=== PATIENT | male | born 1945 | race Caucasian/White ===

== ENCOUNTER 2016-06-21 17:50 | Inpatient (IN) ==
[2016-06-21] MEDS ORDERED: methylPREDNISolone 125 MG/2 ML VIAL IV ONE (18:05)
[2016-06-21] MEDS ORDERED: Ipratropium/Albuterol Neb 3 ML IH ONE (18:05)
--- NOTE | 2016-06-21 18:09 | Emergency Department Note ---
Disposition Clinical Impression: Acute exacerbation of chronic obstructive airways disease Disposition: Admitted As Inpatient Referrals: Daniel Tirado DO [Primary Care Provider] - Forms: ED Satisfaction Letter SOB HPI - General Chief Complaint: ED Shortness of Breath/Dyspnea Stated Complaint: BEREKET, cough congestion Time Seen by Provider: 06/21/16 17:57 Source: patient, family Limitations: no limitations Nursing Notes Reviewed: Yes Vital Signs Reviewed: Yes - History of Present Illness Patient presents for complaint of shortness of breath and been going on for at least a month. Patient denies any recent travel. Patient's had a cough which is: Pain in his chest. Patient denies fevers or chills denies vision changes. Patient states that he follow up his primary care physician with no improvement his symptoms. Patient denies numbness and tingling. Patient denies any new medications or any changes in medication regimen. Patient denies history of DVT or pulmonary embolus. - Related Data Previous Rx's Medication Instructions Recorded Ondansetron ODT [Zofran ODT] 4 mg SL Q8HR #10 tab.rapdis 02/29/16 Oxycodone HCl/Acetaminophen 1 each PO Q4HR #10 tablet 02/29/16 [Percocet 5-325 mg Tablet] Tamsulosin [Flomax] 0.4 mg PO DAILY #10 capsule 02/29/16 Benzonatate [Tessalon] 100 mg PO TID PRN #20 capsule 05/30/16 PredniSONE [Prednisone] 50 mg PO DAILY #5 tablet 05/30/16 Allergies Allergy/AdvReac Type Severity Reaction Status Date / Time pain patches AdvReac See Uncoded 02/04/16 08:28 Comments All systems ED: reviewed and negative except as stated. Past Medical History - Past Medical History Source: patient Medical history: Reports: COPD, GERD, hypertension, kidney stones, peripheral artery disease Psychiatric history: Reports: no psych history - Social History Smoking Status: Unknown if ever smoked Smokeless Tobacco Status: No Alcohol use: Reports: unknown Drug use: Reports: none Physical Exam - General Limitations: no limitations General appearance: alert - Head Head exam: atraumatic, normocephalic, normal inspection - Eye Eye exam: Present: normal appearance, PERRL, EOMI - ENT ENT exam: normal exam, normal oropharynx, mucous membranes moist - Neck Neck exam: Present: normal inspection, full ROM, trachea midline - Chest Chest inspection: Present: normal inspection, symmetric chest wall rise - Respiratory Respiratory exam: Present: other (Decreased air movement, tachypnea, accessory muscle use) - Cardiovascular Cardiovascular exam: Present: regular rate, normal rhythm, normal heart sounds - Abdominal Exam Abdominal exam: Present: soft, Non-Tender. Absent: tenderness, distention, guarding, rebound, rigidity - Extremities Exam Extremities exam: Present: normal inspection, full ROM. Absent: tenderness, pedal edema - Back Exam Back exam: Present: normal inspection, full ROM. Absent: tenderness - Neurological Exam Neurological exam: Present: alert, oriented X3 - Psychiatric Psychiatric exam: Present: normal affect, normal mood - Skin Skin exam: Present: warm, dry, intact, normal color Course Vital Signs Temperature 98.1 F 06/21/16 17:52 Pulse Rate 96 06/21/16 17:52 Respiratory Rate 24 06/21/16 17:52 Blood Pressure 184/77 06/21/16 17:52 O2 Sat by Pulse Oximetry 95 06/21/16 17:52 Temperature 98.1 F 06/21/16 17:52 Pulse Rate 87 06/21/16 20:05 Respiratory Rate 24 06/21/16 20:05 Blood Pressure 169/98 06/21/16 20:05 O2 Sat by Pulse Oximetry 93 L 06/21/16 20:05 Oxygen Delivery Oxygen Delivery Room Air Shortness of Breath/Dyspnea - Differential Diagnosis Likely: acute exacerbation of chronic obstructive airways disease, congestive heart failure, pneumonia, pulmonary embolism - Lab Data Lab results reviewed: Yes I reviewed the patient's lab results. Result diagrams: 06/21/16 18:14 06/21/16 18:14 Lab Results 06/21/16 06/21/16 06/21/16 Range/Units 18:14 18:14 18:14 WBC 6.3 (4.3-11.1) K/mcL RBC 4.83 (4.19-5.50) M/mcL Hgb 14.0 (12.9-16.9) g/dL Hct 41.9 (37.5-50.1) % MCV 86.7 (83.0-100.0) fL MCH 29.0 (28.0-33.3) pg MCHC 33.4 (31.6-35.5) g/dL RDW 13.2 (11.5-14.5) % Plt Count 180 (140-400) K/mcL MPV 10.6 (9.4-12.4) fL Immature Gran % 0.3 (0-4) % Seg Neutrophils % 54.6 % Lymphocytes % 25.8 % Monocytes % 13.8 % Eosinophils % 4.9 % Basophils % 0.6 % Neutrophils # 3.4 (1.6-8.9) K/mcL Lymphocytes # 1.6 (0.6-4.6) K/mcL Monocytes # 0.9 (0.0-1.3) K/mcL Eosinophils # 0.3 (0.0-0.6) K/mcL Basophils # 0.0 (0.0-0.2) K/mcL Immature Plt Fraction 5.7 (1.1-6.1) % PT 12.4 H (9.4-12.1) Seconds INR 1.1 APTT 31.1 (26.0-36.0) Seconds Sodium 141 (136-145) mEq/L Potassium 3.8 (3.5-4.5) mEq/L Chloride 105 (98-109) mEq/L Carbon Dioxide 26 (19-29) mEq/L BUN 19 (8-26) mg/dL Creatinine 1.13 (0.72-1.25) mg/dL Est GFR ( Amer) > 60 (> 60) Est GFR (Non-Af Amer) > 60 (> 60) BUN/Creatinine Ratio 17 (6-26) Glucose 111 H (70-99) mg/dL Calculated Osmolality 295 (280-300) Lactic Acid (0.5-2.2) mmol/L Calcium 8.9 (8.6-10.8) mg/dL Total Bilirubin 0.7 (0.2-1.2) mg/dL AST 32 (5-34) Units/L ALT 49 (0-55) Units/L Alkaline Phosphatase 98 (38-126) Units/L Troponin I (0-0.03) ng/mL B-Natriuretic Peptide (0-100) pg/mL Serum Total Protein 7.2 (6.0-8.3) g/dL Albumin 3.6 (3.5-5.0) g/dL Globulin 3.6 H (2.4-3.5) g/dL Albumin/Globulin Ratio 1.0 L (1.1-2.2) 06/21/16 06/21/16 06/21/16 Range/Units 18:14 18:14 18:14 WBC (4.3-11.1) K/mcL RBC (4.19-5.50) M/mcL Hgb (12.9-16.9) g/dL Hct (37.5-50.1) % MCV (83.0-100.0) fL MCH (28.0-33.3) pg MCHC (31.6-35.5) g/dL RDW (11.5-14.5) % Plt Count (140-400) K/mcL MPV (9.4-12.4) fL Immature Gran % (0-4) % Seg Neutrophils % % Lymphocytes % % Monocytes % % Eosinophils % % Basophils % % Neutrophils # (1.6-8.9) K/mcL Lymphocytes # (0.6-4.6) K/mcL Monocytes # (0.0-1.3) K/mcL Eosinophils # (0.0-0.6) K/mcL Basophils # (0.0-0.2) K/mcL Immature Plt Fraction (1.1-6.1) % PT (9.4-12.1) Seconds INR APTT (26.0-36.0) Seconds Sodium (136-145) mEq/L Potassium (3.5-4.5) mEq/L Chloride (98-109) mEq/L Carbon Dioxide (19-29) mEq/L BUN (8-26) mg/dL Creatinine (0.72-1.25) mg/dL Est GFR ( Amer) (> 60) Est GFR (Non-Af Amer) (> 60) BUN/Creatinine Ratio (6-26) Glucose (70-99) mg/dL Calculated Osmolality (280-300) Lactic Acid 2.2 (0.5-2.2) mmol/L Calcium (8.6-10.8) mg/dL Total Bilirubin (0.2-1.2) mg/dL AST (5-34) Units/L ALT (0-55) Units/L Alkaline Phosphatase (38-126) Units/L Troponin I 0.00 (0-0.03) ng/mL B-Natriuretic Peptide 13 (0-100) pg/mL Serum Total Protein (6.0-8.3) g/dL Albumin (3.5-5.0) g/dL Globulin (2.4-3.5) g/dL Albumin/Globulin Ratio (1.1-2.2) - Radiology Data Radiology results reviewed: Yes I reviewed the patient's radiology results. Chest CTA 06/21/16 18:02 IMPRESSION: 1. No evidence of pulmonary embolism. 2. A few small irregular nodular opacities in the anterior segment of the right upper lobe that may represent an infectious process. See recommendations below. 3. New right hilar lymphadenopathy is nonspecific but may be reactive. 4. COPD. Fleischner Society guidelines for follow-up and management of pulmonary nodules: Nodule size greater than 8 mm In low-risk and high-risk patients follow-up CT at around 3, 9, and 24 months, dynamic contrast-enhanced CT, PET, and/or biopsy. Low risk patients include individuals with minimal or absent history of smoking and other known risk factors. High risk patients include individuals with a history of smoking or other known risk factors. Radiology 2005; [id number] D/ / Matt Simons MD / Matt Simons MD Interpreting Provider: Matt Simons MD - EKG Data EKG attestation: Yes I reviewed and interpreted this EKG. EKG results narrative: EKG is unchanged from previous EKG shows normal: Reports: sinus rhythm Rate: Reports: normal Rhythm: Reports: NSR
[2016-06-21 18:21] LABS: Basophils % 0.6 %; Eosinophils # 0.3 K/mcL (0.0-0.6); Eosinophils % 4.9 %; Hematocrit 41.9 % (37.5-50.1); Immature Granulocytes % 0.3 % (0-4); Immature Platelets 5.7 % (1.1-6.1); Lymphocytes # 1.6 K/mcL (0.6-4.6); Lymphocytes % 25.8 %; Mean Corpuscular HGB Conc 33.4 g/dL (31.6-35.5); Mean Corpuscular Volume 86.7 fL (83.0-100.0); Mean Platelet Volume 10.6 fL (9.4-12.4); Monocytes # 0.9 K/mcL (0.0-1.3); Monocytes % 13.8 %; Neutrophils # 3.4 K/mcL (1.6-8.9); Platelet Count 180 K/mcL (140-400); Red Blood Count 4.83 M/mcL (4.19-5.50); Red Cell Distribution Width 13.2 % (11.5-14.5); Segmented Neutrophils % 54.6 %
[2016-06-21] MEDS ORDERED: GuaiFENesin/Codeine Oral Soln 5 ML UDC PO ONE (18:25)
[2016-06-21 18:26] LABS: INR 1.1; Prothrombin Time 12.4 Seconds (9.4-12.1)
[2016-06-21 18:29] LABS: Activated Partial Thrombo Time 31.1 Seconds (26.0-36.0)
[2016-06-21 18:35] LABS: Alanine Aminotransferase 49 Units/L (0-55); Albumin 3.6 g/dL (3.5-5.0); Alkaline Phosphatase 98 Units/L (38-126); Aspartate Amino Transferase 32 Units/L (5-34); BUN/Creatinine Ratio 17 (6-26); Bilirubin,Total 0.7 mg/dL (0.2-1.2); Blood Urea Nitrogen 19 mg/dL (8-26); Calcium 8.9 mg/dL (8.6-10.8); Carbon Dioxide 26 mEq/L (19-29); Chloride 105 mEq/L (98-109); Globulin 3.6 g/dL (2.4-3.5); Glucose 111 mg/dL (70-99); Osmolality,Calculated 295 (280-300); Potassium 3.8 mEq/L (3.5-4.5); Sodium 141 mEq/L (136-145); Total Protein 7.2 g/dL (6.0-8.3); eGFR For African Americans > 60 (> 60); eGFR For Non-African Americans > 60 (> 60)
[2016-06-21] MEDS ORDERED: Lidocaine Viscous Oral Soln 15 ML SOLUTION MM ONE (20:04)
[2016-06-21] MEDS ORDERED: Albuterol 2.5 MG/3 ML NEBULIZER IH PRN (23:01)
[2016-06-21] MEDS ORDERED: *HR* Morphine 2 MG/ML SYRINGE IVP PRN (23:03)
[2016-06-21] MEDS ORDERED: Ondansetron 4 MG/2 ML VIAL IVP PRN (23:03)
[2016-06-21] MEDS ORDERED: Naloxone 0.4 MG/ML INJ IVP PRN (23:03)
[2016-06-21] MEDS ORDERED: Acetaminophen 325 MG TABLET PO PRN (23:03)
--- NOTE | 2016-06-21 23:28 | Internal Med History&Physical ---
Date of Encounter: 06/21/16 Time of Encounter: 22:35 Internal Medicine - H&P: HPI Chief complaint: Coughing, SOB X 1 MONTH Admitted From: Emergency Dept Plans for Post Hospital Care: Home History of present illness: Mr. Huerta is a 70 year old male with medical history significant for COPD/ emphysema presents with 1 month history of intermittent productive cough, sometime in paroxysm that take his breath away. Associated with SOB. He reports pain in his chest and sides due to coughing. Sometime he nearly lost consciousness during bouths of coughing. He denies fevers or chills or rigors. No sick contacts, no recent travel. He was evaluated by his PCP, as well as at Urgent Care and [facility] [place] [facility]. He was prescribed antibiotic, and inhalers with some relief. N other associated symptoms. He nominates his niece, Starr Saleh , [phone]), he is FUL CODE as per discussion but does not want to be maintained in a prolonged vegetative state. Medical history: Reports: COPD, GERD, hypertension, kidney stones, peripheral artery disease, DM2, sinusitis, seasonal allergies Surgical history: carpal tunnel repir Psychiatric history: Reports: no psych history Smoking Status: Unknown if ever smoked Smokeless Tobacco Status: No Alcohol use: Reports: unknown Drug use: Reports: none Family history: Mother: DM2, kidney disease, brother: lung disease ROS: A 10-point ROS was performed, positives and relevant negatives are detailed , system-symptoms not mentioned is assumed negative unless otherwise stated. Vital Signs Temperature 98.1 F 06/21/16 17:52 Pulse Rate 96 06/21/16 17:52 Respiratory Rate 24 06/21/16 17:52 Blood Pressure 184/77 06/21/16 17:52 O2 Sat by Pulse Oximetry 95 06/21/16 17:52 Temperature 98.1 F 06/21/16 17:52 Pulse Rate 87 06/21/16 20:05 Respiratory Rate 24 06/21/16 20:05 Blood Pressure 169/98 06/21/16 20:05 O2 Sat by Pulse Oximetry 93 L 06/21/16 20:05 O/E: in distress from coughing and labored breathing, , not ill looking, not lethargic HEENT: Not pale, anicteric, afebrile, acyanotic, no JVD Chest:Inspiratory strider (mild) expiratory wheezing more severe and scattered Heart/CVS: RRR, HS1/2, no murmur Abdomen: soft, non-tender, no masses [employer]: AAO x 3, no gross focal neurological deficits, moves all limbs spontaneously. Skin: no active skin lesion Extremities: no normal pedal pulses, no calf tenderness, 1+ pedal edema, L>R Lab Results 06/21/16 06/21/16 06/21/16 Range/Units 18:14 18:14 18:14 WBC 6.3 (4.3-11.1) K/mcL RBC 4.83 (4.19-5.50) M/mcL Hgb 14.0 (12.9-16.9) g/dL Hct 41.9 (37.5-50.1) % MCV 86.7 (83.0-100.0) fL MCH 29.0 (28.0-33.3) pg MCHC 33.4 (31.6-35.5) g/dL RDW 13.2 (11.5-14.5) % Plt Count 180 (140-400) K/mcL MPV 10.6 (9.4-12.4) fL Immature Gran % 0.3 (0-4) % Seg Neutrophils % 54.6 % Lymphocytes % 25.8 % Monocytes % 13.8 % Eosinophils % 4.9 % Basophils % 0.6 % Neutrophils # 3.4 (1.6-8.9) K/mcL Lymphocytes # 1.6 (0.6-4.6) K/mcL Monocytes # 0.9 (0.0-1.3) K/mcL Eosinophils # 0.3 (0.0-0.6) K/mcL Basophils # 0.0 (0.0-0.2) K/mcL Immature Plt Fraction 5.7 (1.1-6.1) % PT 12.4 H (9.4-12.1) Seconds INR 1.1 APTT 31.1 (26.0-36.0) Seconds Sodium 141 (136-145) mEq/L Potassium 3.8 (3.5-4.5) mEq/L Chloride 105 (98-109) mEq/L Carbon Dioxide 26 (19-29) mEq/L BUN 19 (8-26) mg/dL Creatinine 1.13 (0.72-1.25) mg/dL Est GFR ( Amer) > 60 (> 60) Est GFR (Non-Af Amer) > 60 (> 60) BUN/Creatinine Ratio 17 (6-26) Glucose 111 H (70-99) mg/dL Calculated Osmolality 295 (280-300) Lactic Acid (0.5-2.2) mmol/L Calcium 8.9 (8.6-10.8) mg/dL Total Bilirubin 0.7 (0.2-1.2) mg/dL AST 32 (5-34) Units/L ALT 49 (0-55) Units/L Alkaline Phosphatase 98 (38-126) Units/L Troponin I (0-0.03) ng/mL B-Natriuretic Peptide (0-100) pg/mL Serum Total Protein 7.2 (6.0-8.3) g/dL Albumin 3.6 (3.5-5.0) g/dL Globulin 3.6 H (2.4-3.5) g/dL Albumin/Globulin Ratio 1.0 L (1.1-2.2) 06/21/16 06/21/16 06/21/16 Range/Units 18:14 18:14 18:14 WBC (4.3-11.1) K/mcL RBC (4.19-5.50) M/mcL Hgb (12.9-16.9) g/dL Hct (37.5-50.1) % MCV (83.0-100.0) fL MCH (28.0-33.3) pg MCHC (31.6-35.5) g/dL RDW (11.5-14.5) % Plt Count (140-400) K/mcL MPV (9.4-12.4) fL Immature Gran % (0-4) % Seg Neutrophils % % Lymphocytes % % Monocytes % % Eosinophils % % Basophils % % Neutrophils # (1.6-8.9) K/mcL Lymphocytes # (0.6-4.6) K/mcL Monocytes # (0.0-1.3) K/mcL Eosinophils # (0.0-0.6) K/mcL Basophils # (0.0-0.2) K/mcL Immature Plt Fraction (1.1-6.1) % PT (9.4-12.1) Seconds INR APTT (26.0-36.0) Seconds Sodium (136-145) mEq/L Potassium (3.5-4.5) mEq/L Chloride (98-109) mEq/L Carbon Dioxide (19-29) mEq/L BUN (8-26) mg/dL Creatinine (0.72-1.25) mg/dL Est GFR ( Amer) (> 60) Est GFR (Non-Af Amer) (> 60) BUN/Creatinine Ratio (6-26) Glucose (70-99) mg/dL Calculated Osmolality (280-300) Lactic Acid 2.2 (0.5-2.2) mmol/L Calcium (8.6-10.8) mg/dL Total Bilirubin (0.2-1.2) mg/dL AST (5-34) Units/L ALT (0-55) Units/L Alkaline Phosphatase (38-126) Units/L Troponin I 0.00 (0-0.03) ng/mL B-Natriuretic Peptide 13 (0-100) pg/mL Serum Total Protein (6.0-8.3) g/dL Albumin (3.5-5.0) g/dL Globulin (2.4-3.5) g/dL Albumin/Globulin Ratio (1.1-2.2) Chest CTA 06/21/16 18:02 No evidence of pulmonary embolism. A few small irregular nodular opacities in the anterior segment of the right upper lobe that may represent an infectious process. New right hilar lymphadenopathy is nonspecific but may be reactive. COPD. EKG: NSR, unchanged from prior imp Tracheobronchitis, evaluate for Mycoplasma, absent terminal whoop and lacking an ideal contact, whooping cough is unlikely. CPD exacerbation Chronic morbidties copd/emphysema HTN PAD BPH GERD PLAN Admit Bronchodilator nebs, inhalers zITHROMAX FOR PROBABLE MYCOPLASMA Mycoplasma antibody IgG/M Solumedro 40mg Q8H Oxygen supplementation Continue other medications of chronic morbidities I discussed my findings and assessment with the patient, his niece is at bedside. They verbalized understanding and are agreeable to admission. H is admitted due to failed out-patient treatment, deteriorating symptoms. Past Med Surg Social Fam HX - Past Medical History Medical history: COPD, GERD, hypertension, kidney stones, peripheral artery disease Psychiatric history: no psych history - Social History Smoking Status: Never smoker Smokeless Tobacco Status: No Alcohol use: unknown Drug use: none - Family History Mother Living Status: Hx Family Endocrine Disorder: Yes (DM, kidney disease) Father Living Status: Internal Medicine - H&P: Meds Tamsulosin [Flomax] 0.4 mg PO DAILY #10 capsule 02/29/16 [Rx] PredniSONE [Prednisone] 50 mg PO DAILY #5 tablet 05/30/16 [Rx] Advair 500-50 Diskus 06/21/16 [History] Albuterol Sulfate [Proventil Hfa] 0.09 mg IH PRN PRN 06/21/16 [History] Atenolol [Tenormin] 50 mg PO DAILY 06/21/16 [History] Diazepam [Valium] 2.5 mg PO BID PRN 06/21/16 [History] Fluticasone/Salmeterol [Advair 500-50 Diskus] 1 each IH BID 06/21/16 [History] Omeprazole [PriLOSEC] 20 mg PO BIDAC 06/21/16 [History] Oxycodone HCl/Acetaminophen [Percocet 10-325 mg Tablet] 1 each PO Q6HR PRN 06/21 [History] Oxycodone HCl/Acetaminophen [Percocet 5-325 mg Tablet] 06/21/16 [History] Simvastatin [Zocor] 40 mg PO HS 06/21/16 [History] Tiotropium [Spiriva] 18 mcg IH DAILY 06/21/16 [History] Allergies pain patches Adverse Reaction (Uncoded 02/04/16 08:28) See Comments pt states was really sick -doesn't know the name of patches All Systems PM: A 10-system review of systems was performed and is negative for pertinent findings except as documented above in the HPI. - Constitutional Vitals: Temp Pulse Resp BP Pulse Ox 98.1 F 78 16 149/80 92 L 06/21/16 23:08 06/21/16 23:08 06/21/16 23:08 06/21/16 23:08 06/21/16 23:08 Internal Med - H&P Results - Labs CBC & Chem 7: 06/21/16 18:14 06/21/16 18:14
[2016-06-21] MEDS: Ipratropium/Albuterol Neb 3 ML IH SCH (23:35)
[2016-06-22] MEDS: GuaiFENesin/Codeine Oral Soln 5 ML UDC PO SCH ×4 (00:11→18:19)
[2016-06-22] MEDS: MethylPREDNISolone 40 MG/ML VIAL IVP SCH ×3 (00:11→15:15)
[2016-06-22] MEDS: Azithromycin 250 MG TABLET PO SCH ×2 (00:11→08:09)
[2016-06-22] MEDS: Ipratropium/Albuterol Neb 3 ML IH SCH ×4 (04:41→22:43)
[2016-06-22] MEDS: *HR* OxyCODONE/APAP 5/325 TABLET PO PRN ×2 (08:09→11:03)
[2016-06-22] MEDS: diazePAM 5 MG TABLET PO PRN ×2 (08:22→19:49)
--- NOTE | 2016-06-22 09:01 | Internal Med Progress Note ---
Date of Encounter: 06/22/16 Time of Encounter: 08:15 - Assessment and plan (1) Pneumonia Current Visit: Yes Status: Acute Assessment and plan: With his paroxysmal cough will check. Pertussis continue azithromycin continue aerosol treatment add Mucinex Qualifiers: Pneumonia type: due to unspecified organism Laterality: right Lung location: upper lobe of lung Qualified Code(s): J18.1 - Lobar pneumonia, unspecified organism (2) Sore throat Current Visit: Yes Status: Acute (3) Acute exacerbation of chronic obstructive airways disease Current Visit: Yes Status: Acute - Subjective Interval history: Patient continued to complain dry cough, sore throat, paroxysmal coughing episodes. When his phlegm occasionally it is yellowish phlegm Review of system otherwise negative - Constitutional Vitals: Temp Pulse Resp BP Pulse Ox 97.5 F L 103 24 155/77 90 L 06/22/16 07:00 06/22/16 07:00 06/22/16 07:00 06/22/16 07:00 06/22/16 07:00 - Head Head exam: Present: atraumatic, normocephalic - Expanded ENT Exam Throat exam: Present: normal inspection. Absent: post pharyngeal edema, tonsillar exudate - Neck Neck exam general surgery: Present: supple, trachea midline. Absent: lymphadenopathy - Respiratory Respiratory exam: Present: decreased breath sounds, rales (Right upper lobe). Absent: accessory muscle use, rhonchi, wheezes - Cardiovascular Cardiovascular exam: Present: RRR, +S1, +S2. Absent: diastolic murmur, gallop, rubs, systolic murmur - GI/Abdominal GI/Abdominal exam: Present: normal bowel sounds, soft, no peritoneal signs. Absent: distended, tenderness - Extremities Exam Extremities exam: Present: warm, radial pulses palpable and symetrical. Absent : calf tenderness, cyanotic, pedal edema - Skin Skin exam: Present: dry, intact Internal Medicine: Result - Labs CBC & Chem 7: 06/21/16 18:14 06/21/16 18:14 - ABG Interpretation ABG results: PT/INR, D-dimer PT 12.4 Seconds (9.4-12.1) H 06/21/16 18:14 Consult Discharge Plan - Plan Referrals: Daniel Tirado DO [Primary Care Provider] -
[2016-06-22] MEDS: Budesonide/Formoterol 160/4.5 MDI IH SCH ×2 (10:44→22:43)
[2016-06-22] MEDS ORDERED: CefTRIAXone 1,000 MG VIAL ONE (11:00)
[2016-06-22] MEDS: *HR* OxyCODONE/APAP 10/325 TABLET PO PRN ×3 (12:40→18:20)
[2016-06-23] MEDS: MethylPREDNISolone 40 MG/ML VIAL IVP SCH ×3 (00:12→17:51)
[2016-06-23] MEDS: GuaiFENesin/Codeine Oral Soln 5 ML UDC PO SCH ×4 (00:12→17:51)
[2016-06-23] MEDS: Ipratropium/Albuterol Neb 3 ML IH SCH ×5 (05:15→23:05)
--- NOTE | 2016-06-23 06:18 | Electrocardiograph Report ---
[facility] Test Date: 2016-06-21 Pat Name: Nik Huerta Department: 104 Room: 3B32 Gender: M Clinic Nurse: MAGGIE : 1945 Requested By: Stanley Caballero Order Number: [id number] Reading MD: Lb Wasserman MD Measurements Intervals [place] Rate: 94 P: 78 FL: 180 QRS: -39 QRSD: 86 T: 58 QT: 347 QTc: 399 Interpretive Statements SINUS RHYTHM LEFT AXIS DEVIATION Electronically Signed On 06-23-16 06:17:36 EST by Lb Wasserman MD
[2016-06-23] MEDS: Azithromycin 250 MG TABLET PO SCH (08:14)
--- NOTE | 2016-06-23 08:49 | Internal Med Progress Note ---
Date of Encounter: 06/23/16 Time of Encounter: 07:40 - Assessment and plan (1) Pneumonia Current Visit: Yes Status: Acute Qualifiers: Pneumonia type: due to unspecified organism Laterality: right Lung location: upper lobe of lung Qualified Code(s): J18.1 - Lobar pneumonia, unspecified organism (2) Sore throat Current Visit: Yes Status: Acute (3) Acute exacerbation of chronic obstructive airways disease Current Visit: Yes Status: Acute Assessment and plan: Plan With persistent feeling of possible mass stocking on his throat, discussed with pulmonary team he recommended CAT scan neck without contrast continue current treatment, pertussis screening negative, possible laryngitis continue steroids may consider antihistaminic,awaiting primary team,recheck CBC and BMP - Time Spent With Patient 25 - 35 minutes - Subjective Interval history: Patient continued to complain dry cough, sore throat, paroxysmal coughing episodes. Patient still has a feeling of something stuck in his throat with episode of suffocation - Constitutional Vitals: Temp Pulse Resp BP Pulse Ox 98.0 F 94 18 154/74 88 L 06/23/16 07:24 06/23/16 07:24 06/23/16 07:24 06/23/16 07:24 06/23/16 07:24 General appearance: Present: pleasant, no acute distress - Head Head exam: Present: atraumatic, normocephalic - Neck Neck exam general surgery: Present: supple, trachea midline. Absent: lymphadenopathy - Respiratory Respiratory exam: Present: decreased breath sounds, CTAB, prolonged expiratory phase, rales. Absent: accessory muscle use, rhonchi, wheezes - Cardiovascular Cardiovascular exam: Present: RRR, +S1, +S2. Absent: diastolic murmur, gallop, rubs, systolic murmur - GI/Abdominal GI/Abdominal exam: Present: normal bowel sounds, soft, no peritoneal signs. Absent: distended, tenderness - Extremities Exam Extremities exam: Present: warm, radial pulses palpable and symetrical. Absent : calf tenderness, cyanotic, pedal edema - Skin Skin exam: Present: dry, intact Internal Medicine: Result - Labs CBC & Chem 7: 06/21/16 18:14 06/21/16 18:14 - ABG Interpretation ABG results: PT/INR, D-dimer PT 12.4 Seconds (9.4-12.1) H 06/21/16 18:14 Consult Discharge Plan - Plan Referrals: Daniel Tirado DO [Primary Care Provider] -
[2016-06-23 09:30] LABS: Basophils % 0.2 %; Hemoglobin 13.5 g/dL (12.9-16.9); Immature Granulocytes % 0.3 % (0-4); Lymphocytes # 0.4 K/mcL (0.6-4.6); Lymphocytes % 3.2 %; Mean Corpuscular HGB Conc 32.9 g/dL (31.6-35.5); Mean Corpuscular Hemoglobin 28.6 pg (28.0-33.3); Mean Corpuscular Volume 86.9 fL (83.0-100.0); Mean Platelet Volume 10.9 fL (9.4-12.4); Monocytes # 0.7 K/mcL (0.0-1.3); Monocytes % 5.2 %; Neutrophils # 11.5 K/mcL (1.6-8.9); Platelet Count 210 K/mcL (140-400); Red Blood Count 4.72 M/mcL (4.19-5.50); Red Cell Distribution Width 13.5 % (11.5-14.5); Segmented Neutrophils % 91.1 %
[2016-06-23 09:41] LABS: BUN/Creatinine Ratio 31 (6-26); Calcium 9.1 mg/dL (8.6-10.8); Carbon Dioxide 21 mEq/L (19-29); Chloride 107 mEq/L (98-109); Glucose 159 mg/dL (70-99); Osmolality,Calculated 302 (280-300); Potassium 4.2 mEq/L (3.5-4.5); Sodium 141 mEq/L (136-145); eGFR For African Americans > 60 (> 60); eGFR For Non-African Americans > 60 (> 60)
[2016-06-23 09:43] LABS: Blood Urea Nitrogen 30 mg/dL (8-26)
--- NOTE | 2016-06-23 10:00 | Pulmonology Consult Note ---
<Misha Shankar - Last Filed: 06/23/16 11:08> Date of Encounter: 06/23/16 Time of Encounter: 09:50 Assessment and Plan (1) Incidental lung nodule, greater than or equal to 8mm Current Visit: Yes Status: Acute Patient with a significant history including COPD, emphysema, and smoking presented with complaint of cough and shortness of breath for 1 month duration. CTA revealed newly enlarged right hilar lymph node measuring approximately 18mm in short axis and a newly enlarged right hilar lymph node measuring approximately 12 mm in short axis, 2mm calcified granuloma in right lobe, and irregular nodular opacities in anterior segment of right upper lobe largest measuring 12 x 5 mm. May consider bronchoscopy or repeat CT as outpatient. No additional recommendations at this time. (2) Sensation of lump in throat Current Visit: Yes Status: Acute Patient reports 2 month history of sensation of lump in his throat. Reports dysphagia with liquids and solid foods as well as odynophagia, denies vomiting. Physical exam reveals normal oropharynx and normal neck exam. Recommend CT neck for further evaluation. (3) Pneumonia Current Visit: Yes Status: Acute Continue per hospitalist plan. Qualifiers: Pneumonia type: due to unspecified organism Laterality: right Lung location: upper lobe of lung Qualified Code(s): J18.1 - Lobar pneumonia, unspecified organism (4) Acute exacerbation of chronic obstructive airways disease Current Visit: Yes Status: Acute Continue per hospitalist plan. History of Present Illness Consult date: 06/23/16 Requesting physician: Narendra García Reason for consult: other (dysphagia, sore throat) Chief complaint: Dysphagia, sore throat History of present illness: Mr. Huerta is a 70 year old male with history of COPD, emphysema, smoking histry of 1-2 pack per day for about 46 years (stopped in 2002), hypertension, gerd, peripheral artery disease, kidney stones, and carpal tunnel repair surgery who presented to [facility] before transfer with 1 month history of intermittent productive cough causing him increased shortness of breath, coughing spells, and near syncope on several occasions due to cough. Patient reports developing flu-like symptoms shortly after receiving flu shot 04/23/16 and has since had daily and worsening cough. Reports some chest pain due to continued cough and shortness of breath. Patient mainly reports he is bothered by a tickle in his throat and sensation of lump just behind his echevarria apple in his throat that causes him some throat pain and troubles swallowing. Patient report he noticed the bump in his throat for about 2 months now. Patient reports trouble swallowing liquids and solid foods, but denies vomiting or food stuck in throat. Patient denies fevers, chills, sweats, changes in vision or hearing, nausea, vomiting, abdominal pain, changes in bowels or bladder, weakness, or loss of sensation. CXR revealed newly enlarged right hilar lymph node measuring approximately 18mm in short axis and a newly enlarged right hilar lymph node measuring approximately 12 mm in short axis, 2mm calcified granuloma in right lobe, and irregular nodular opacities in anterior segment of right upper lobe largest measuring 12 x 5 mm. Pulmonary was consulted for lung nodules, possible laryngeal nodule, and atypical pneumonia. Past Med Surg Social Fam HX - Past Medical History Medical history: COPD, GERD, hypertension, kidney stones, peripheral artery disease, other (BPH) Psychiatric history: no psych history - Past Surgical History Surgical History: other (carpal tunnel repair) - Social History Smoking Status: Former smoker Packs per day: 46 years, 1-2ppd, cessation 2002 Smokeless Tobacco Status: No Alcohol use: unknown Drug use: none Occupational status: retired Current living situation: Home - Independent, With Family Activity Level: Independent ambulation Recent Out of Country Travel Within the Last 8 Weeks: No Exposure or Possible Exposure to Illness During Travel: No - Family History Mother Living Status: Hx Family Endocrine Disorder: Yes (DM, kidney disease) Father Living Status: Medications and Allergies Tamsulosin [Flomax] 0.4 mg PO DAILY #10 capsule 02/29/16 [Rx] Albuterol Sulfate [Proventil Hfa] 0.09 mg IH PRN PRN 06/21/16 [History] Atenolol [Tenormin] 50 mg PO DAILY 06/21/16 [History] Diazepam [Valium] 2.5 mg PO BID PRN 06/21/16 [History] Omeprazole [PriLOSEC] 20 mg PO BIDAC 06/21/16 [History] Oxycodone HCl/Acetaminophen [Percocet 10-325 mg Tablet] 1 each PO Q6HR PRN 06/21 [History] Simvastatin [Zocor] 40 mg PO HS 06/21/16 [History] Tiotropium [Spiriva] 18 mcg IH DAILY 06/21/16 [History] Fluticasone/Salmeterol [Advair 250-50 Diskus] 1 puff IH BID 06/22/16 [History] Furosemide [Lasix] 40 mg PO DAILY PRN 06/22/16 [History] Oxygen 2 l NS DAILY PRN 06/22/16 [History] TraZODone 50 mg PO HS 06/22/16 [History] Allergies pain patches Adverse Reaction (Uncoded 06/22/16 12:15) See Comments pt states was really sick -doesn't know the name of patches All Systems: A 10-system review of systems was performed and is negative for pertinent findings except as documented above in the HPI. - Constitutional Constitutional: as per HPI, no chills, no fever(s), no headache(s), no night sweats - EENT Eyes: as per HPI Ears: as per HPI Nose, mouth and throat: as per HPI, sore throat, no dysphagia, no headache(s) - Cardiovascular Cardiovascular: as per HPI, chest pain, dyspnea, no edema, no palpitations, no syncope - Respiratory Respiratory: as per HPI, cough, dyspnea, chest congestion, pain with cough, no wheezing, no excessive phlegm production, no change in phlegm color - Gastrointestinal Gastrointestinal: as per HPI, no abdominal pain, no diarrhea, no heartburn, no nausea, no vomiting - Genitourinary Genitourinary: as per HPI, no dysuria, no flank pain - Musculoskeletal Musculoskeletal: as per HPI, no weakness, no numbness - Integumentary Integumentary: as per HPI, no rash - Neurological Neurological: as per HPI, no headache(s), no weakness Physical Examination Vital Signs: Vital Signs, Last 4 Hours Temp Pulse Resp BP Pulse Ox 06/23/16 07:24 98.0 F 94 18 154/74 88 L General appearance: alert, other (moderate resp distress with cough) Eyes: nonicteric ENT: oropharynx moist, other (non erythematous, normal inspection) Neck: supple, no lymphadenopathy, no JVD, other (normal inspection, no abnormalities noted on palpation) Effort: mildly labored Inspection: normal Auscultation: bilateral: wheezes Cardiovascular: regular rate and rhythm Gastrointestinal: normoactive bowel sounds, soft, non-tender, non-distended Integumentary: normal Extremities: no cyanosis, no edema, no clubbing, pink and warm, pulses normal Musculoskeletal: no deformities Gait: normal posture normal mental status, non-focal exam, pupils equal and round, CN II-XII normal, motor strength normal and symmetric mood appropriate, affect normal Results - Laboratory Findings CBC and BMP: 06/23/16 09:22 06/23/16 09:22 PT/INR, D-dimer PT 12.4 Seconds (9.4-12.1) H 06/21/16 18:14 Abnormal lab findings: Abnormal lab results WBC 12.6 K/mcL (4.3-11.1) H D 06/23/16 09:22 Neutrophils # 11.5 K/mcL (1.6-8.9) H 06/23/16 09:22 Lymphocytes # 0.4 K/mcL (0.6-4.6) L 06/23/16 09:22 PT 12.4 Seconds (9.4-12.1) H 06/21/16 18:14 BUN 30 mg/dL (8-26) H D 06/23/16 09:22 BUN/Creatinine Ratio 31 (6-26) H 06/23/16 09:22 Glucose 159 mg/dL (70-99) H 06/23/16 09:22 Calculated Osmolality 302 (280-300) H 06/23/16 09:22 Globulin 3.6 g/dL (2.4-3.5) H 06/21/16 18:14 Albumin/Globulin Ratio 1.0 (1.1-2.2) L 06/21/16 18:14 - Clinical Findings Intake & Output: Intake & Output 06/22/16 06/23/16 06/23/16 23:59 07:59 15:59 Intake Total 600 / 600 580 / 580 Balance 600 / 600 580 / 580 Weight 92.3 kg Consult Discharge Plan - Plan Referrals: Daniel Tirado DO [Primary Care Provider] - 06/26/16 3:00 pm <Kameron Vences - Last Filed: 06/23/16 17:24> Date of Encounter: 06/23/16 All Systems: A 10-system review of systems was performed and is negative for pertinent findings except as documented above in the HPI. Physical Examination Vital Signs: Vital Signs, Last 4 Hours Temp Pulse Resp BP Pulse Ox 06/23/16 15:59 18 94 L 06/23/16 15:07 97.7 F 84 18 154/81 89 L Results - Laboratory Findings CBC and BMP: 06/23/16 09:22 06/23/16 09:22 PT/INR, D-dimer PT 12.4 Seconds (9.4-12.1) H 06/21/16 18:14 Abnormal lab findings: Abnormal lab results WBC 12.6 K/mcL (4.3-11.1) H D 06/23/16 09:22 Neutrophils # 11.5 K/mcL (1.6-8.9) H 06/23/16 09:22 Lymphocytes # 0.4 K/mcL (0.6-4.6) L 06/23/16 09:22 PT 12.4 Seconds (9.4-12.1) H 06/21/16 18:14 BUN 30 mg/dL (8-26) H D 06/23/16 09:22 BUN/Creatinine Ratio 31 (6-26) H 06/23/16 09:22 Glucose 159 mg/dL (70-99) H 06/23/16 09:22 Calculated Osmolality 302 (280-300) H 06/23/16 09:22 Globulin 3.6 g/dL (2.4-3.5) H 06/21/16 18:14 Albumin/Globulin Ratio 1.0 (1.1-2.2) L 06/21/16 18:14 - Clinical Findings Intake & Output: Intake & Output 06/23/16 06/23/16 06/23/16 07:59 15:59 23:59 Intake Total 600 / 600 820 / 820 Balance 600 / 600 820 / 820 Weight 92.3 kg - Attending Attestation I examined this patient and my medical decision-making was reviewed with the [employer] INFORMATION CLERK/PA/Advanced Practice Nurse/Resident Physician. I agree with the documented findings, disposition and treatment plan as described except to the extent set forth below. Patient seen and examined and images and labs reviewed with the resident and also discussed with the hospitalists. Patient has mild respiratory distress and has scattered rhonchi in both lungs Patient continue to have feeling of something in his throat and CT neck in unremarkable, except for chronic sinusitis. ENT consult is recommended. Continue bronchodilators Patient has hilar adenopathy, he is a former smoker, follow up CT as outpatient in 6 weeks, if still have adenopathy, then will need bronchoscopy. If bronch at this time could worsen his respiratory status. Thank you for the consult, please call should you have any question.
[2016-06-23] MEDS: Budesonide/Formoterol 160/4.5 MDI IH SCH ×2 (11:08→23:05)
[2016-06-23] MEDS: Loratadine 10 MG TABLET PO SCH (17:51)
[2016-06-23] MEDS: *HR* OxyCODONE/APAP 10/325 TABLET PO PRN (18:04)
[2016-06-23] MEDS: Fluticasone Propionate Nasal 50 MCG/SPRAY BOTTLE NS SCH (18:05)
[2016-06-24] MEDS: GuaiFENesin/Codeine Oral Soln 5 ML UDC PO SCH ×3 (00:08→12:41)
[2016-06-24] MEDS: MethylPREDNISolone 40 MG/ML VIAL IVP SCH ×2 (00:08→08:27)
[2016-06-24] MEDS: Ipratropium/Albuterol Neb 3 ML IH SCH ×2 (03:32→11:08)
[2016-06-24] MEDS: Azithromycin 250 MG TABLET PO SCH (08:28)
[2016-06-24] MEDS: Loratadine 10 MG TABLET PO SCH (08:28)
[2016-06-24] MEDS: Fluticasone Propionate Nasal 50 MCG/SPRAY BOTTLE NS SCH (08:29)
--- NOTE | 2016-06-24 10:25 | Pulmonology Progress Note ---
<Misha Shankar - Last Filed: 06/24/16 10:23> Date of Encounter: 06/24/16 Time of Encounter: 10:23 Assessment and Plan (1) Incidental lung nodule, greater than or equal to 8mm Status: Acute Patient with a significant history including COPD, emphysema, and smoking presented with complain of cough and shortness of breath for 1 month duration. CTA revealed multiple hilar lymph nodes and irregular nodular opacities on the right. Bronchoscopy and repeat CT as outpatient. No additional recommendations at this time. (2) Sensation of lump in throat Status: Acute Patient reported a history of sensation of lump in his throat causing him irritation and sore throat, but no dysphagia. Exam was normal. CT neck revealed no gross abnormal cervical soft tissue mass or abnormal cervical lymphadenopathy, smalls paranasal mucosal thickening suggestive of chronic sinusitis, and upper lung emphysema. Continue with ENT evaluation. No additional recommendations at this time. (3) Pneumonia Status: Acute Continue per hospitalist plan. Qualifiers: Pneumonia type: due to unspecified organism Laterality: right Lung location: upper lobe of lung Qualified Code(s): J18.1 - Lobar pneumonia, unspecified organism (4) Acute exacerbation of chronic obstructive airways disease Status: Acute Continue with hospitalist plan. Subjective Principal diagnosis: Lung nodules, sensation in throat, atypical pneumonia Interval history: Patient did well overnight without complaints. Reports improved breathing, decreased shortness of breath, and decreased cough. Denies fevers, chills, sweats, headaches, changes in vision or hearing, chest pain, abdominal pain, changes in bowels or bladder, weakness, or loss of sensation. Objective PUL Vital signs: Last Vital Signs Temp 97.6 F 06/24/16 07:49 Pulse 77 06/24/16 07:49 Resp 16 06/24/16 07:49 BP 146/73 06/24/16 07:49 Pulse Ox 90 L 06/24/16 07:49 General appearance: no acute distress, alert Eyes: nonicteric ENT: oropharynx moist Neck: supple, no lymphadenopathy, no JVD Effort: normal Auscultation: bilateral: wheezes Cardiovascular: regular rate and rhythm Gastrointestinal: normoactive bowel sounds, soft, non-tender, non-distended Integumentary: normal Extremities: no cyanosis, no edema, pink and warm, pulses normal Musculoskeletal: no deformities, ROM normal Gait: normal gait, normal posture normal mental status, non-focal exam, pupils equal and round, CN II-XII normal, motor strength normal and symmetric affect normal Results - Laboratory Findings CBC and BMP: 06/23/16 09:22 06/23/16 09:22 PT/INR, D-dimer PT 12.4 Seconds (9.4-12.1) H 06/21/16 18:14 Abnormal lab findings: Abnormal lab results WBC 12.6 K/mcL (4.3-11.1) H D 06/23/16 09:22 Neutrophils # 11.5 K/mcL (1.6-8.9) H 06/23/16 09:22 Lymphocytes # 0.4 K/mcL (0.6-4.6) L 06/23/16 09:22 PT 12.4 Seconds (9.4-12.1) H 06/21/16 18:14 BUN 30 mg/dL (8-26) H D 06/23/16 09:22 BUN/Creatinine Ratio 31 (6-26) H 06/23/16 09:22 Glucose 159 mg/dL (70-99) H 06/23/16 09:22 Calculated Osmolality 302 (280-300) H 06/23/16 09:22 Globulin 3.6 g/dL (2.4-3.5) H 06/21/16 18:14 Albumin/Globulin Ratio 1.0 (1.1-2.2) L 06/21/16 18:14 - Clinical Findings Intake & Output: Intake & Output 06/23/16 06/24/16 06/24/16 23:59 07:59 15:59 Intake Total 240 / 240 360 / 360 Balance 240 / 240 360 / 360 Weight 91.3 kg Consult Discharge Plan - Plan Instructions: Prednisone (By mouth), Guaifenesin (By mouth), Loratadine (By mouth), Amoxicillin (By mouth), Fluticasone (Into the nose) Additional Instructions: Follow-up with primary care provider as scheduled. Follow-up with pulmonology as needed Referrals: [facility] [Provider Group] Daniel Tirado DO [Primary Care Provider] - 06/26/16 3:00 pm Prescriptions: GuaiFENesin/Codeine [ROBITUSSIN w/CODEINE] 10 ml PO Q6HR PRN #160 ml PRN Reason: cough and congestion Sodium Chloride/Aloe Nasal Gel [Gateway Saline Nasal Gel] 1 appl NS Q6HR #1 tube Amoxicillin/Clavulanate [Augmentin] 875 mg PO BIDWM #20 tablet Fluticasone Propionate Nasal [Flonase] 100 mcg NS DAILY #1 bottle Loratadine [Claritin] 10 mg PO DAILY #30 tablet PredniSONE 10 mg PO DAILY #41 tablet <Kameron Vences M - Last Filed: 06/24/16 17:27> Objective PUL Vital signs: Last Vital Signs Temp 98.2 F 06/24/16 11:54 Pulse 81 06/24/16 11:54 Resp 15 06/24/16 11:54 BP 145/76 06/24/16 11:54 Pulse Ox 90 L 06/24/16 11:54 Results - Laboratory Findings CBC and BMP: 06/23/16 09:22 06/23/16 09:22 PT/INR, D-dimer PT 12.4 Seconds (9.4-12.1) H 06/21/16 18:14 Abnormal lab findings: Abnormal lab results WBC 12.6 K/mcL (4.3-11.1) H D 06/23/16 09:22 Neutrophils # 11.5 K/mcL (1.6-8.9) H 06/23/16 09:22 Lymphocytes # 0.4 K/mcL (0.6-4.6) L 06/23/16 09:22 PT 12.4 Seconds (9.4-12.1) H 06/21/16 18:14 BUN 30 mg/dL (8-26) H D 06/23/16 09:22 BUN/Creatinine Ratio 31 (6-26) H 06/23/16 09:22 Glucose 159 mg/dL (70-99) H 06/23/16 09:22 Calculated Osmolality 302 (280-300) H 06/23/16 09:22 Globulin 3.6 g/dL (2.4-3.5) H 06/21/16 18:14 Albumin/Globulin Ratio 1.0 (1.1-2.2) L 06/21/16 18:14 - Clinical Findings Intake & Output: Intake & Output 06/24/16 06/24/16 06/24/16 07:59 15:59 23:59 Intake Total 360 / 360 Balance 360 / 360 Weight 91.3 kg - Attending Attestation I examined this patient and my medical decision-making was reviewed with the DIRECTIONAL DRILLER/PA/Advanced Practice Nurse/Resident Physician. I agree with the documented findings, disposition and treatment plan as described except to the extent set forth below. Discussed plan of care with the resident and reviewed his labs and images. Patient will follow-up as outpatient and slightly he will need to follow-up CT chest for adenopathy as indicated in the consultation and possible biopsy if continuing to have enlarged lymph nodes.
[2016-06-24] MEDS: Budesonide/Formoterol 160/4.5 MDI IH SCH (11:08)
[2016-06-24 11:54] VITALS: BP 145/76
--- NOTE | 2016-06-24 12:55 | Discharge Summary ---
Date of Encounter: 06/24/16 Time of Encounter: 10:00 - Discharge Diagnosis (1) Acute exacerbation of chronic obstructive airways disease Priority: Primary Status: Resolved Comments: Patient denies shortness of breath above his normal discharge. Follow-up outpatient with pulmonology. (2) URI (upper respiratory infection) Priority: Primary Status: Acute Comments: Treated with Flonase and Claritin while admitted, will continue upon disposition. (3) Pneumonia Priority: Primary Status: Ruled-out Comments: Physical examination not overly consistent with pneumonia. No leukocytosis upon presentation. Consistent more so with COPD exacerbation. Qualifiers: Pneumonia type: due to unspecified organism Laterality: right Lung location: upper lobe of lung Qualified Code(s): J18.1 - Lobar pneumonia, unspecified organism (4) Incidental lung nodule, greater than or equal to 8mm Priority: Primary Status: Acute Comments: Seen and evaluated by pulmonology throughout this admission and cleared for outpatient follow-up (5) Sensation of lump in throat Priority: Primary Status: Acute Comments: CAT scan of soft tissues of neck unremarkable. ENT also did a bedside scope with no acute abnormalities noted. We will continue to treat his reflux as well as his URI that is likely causing the constant "tickle in his throat" as he calls it. No dysphagia, no muffled voice, no drooling, no difficulty eating. (6) Sore throat Priority: Primary Status: Acute (7) Acute and chronic respiratory failure Priority: Secondary Status: Chronic Comments: Patient is on 2 L as needed at home, he did not have increased oxygen requirements upon discharge. Follow-up outpatient. - Discharge Medications Prescriptions: GuaiFENesin/Codeine [ROBITUSSIN w/CODEINE] 10 ml PO Q6HR PRN #160 ml PRN Reason: cough and congestion Sodium Chloride/Aloe Nasal Gel [[place] Saline Nasal Gel] 1 appl NS Q6HR #1 tube Amoxicillin/Clavulanate [Augmentin] 875 mg PO BIDWM #20 tablet Fluticasone Propionate Nasal [Flonase] 100 mcg NS DAILY #1 bottle Loratadine [Claritin] 10 mg PO DAILY #30 tablet PredniSONE 10 mg PO DAILY #41 tablet Home Medications: Tamsulosin [Flomax] 0.4 mg PO DAILY #10 capsule 02/29/16 [Rx] Albuterol Sulfate [Proventil Hfa] 0.09 mg IH PRN PRN 06/21/16 [History] Atenolol [Tenormin] 50 mg PO DAILY 06/21/16 [History] Diazepam [Valium] 2.5 mg PO BID PRN 06/21/16 [History] Omeprazole [PriLOSEC] 20 mg PO BIDAC 06/21/16 [History] Oxycodone HCl/Acetaminophen [Percocet 10-325 mg Tablet] 1 each PO Q6HR PRN 06/21 [History] Simvastatin [Zocor] 40 mg PO HS 06/21/16 [History] Tiotropium [Spiriva] 18 mcg IH DAILY 06/21/16 [History] Fluticasone/Salmeterol [Advair 250-50 Diskus] 1 puff IH BID 06/22/16 [History] Furosemide [Lasix] 40 mg PO DAILY PRN 06/22/16 [History] Oxygen 2 l NS DAILY PRN 06/22/16 [History] TraZODone 50 mg PO HS 06/22/16 [History] Amoxicillin/Clavulanate [Augmentin] 875 mg PO BIDWM #20 tablet 06/24/16 [Rx] Fluticasone Propionate Nasal [Flonase] 100 mcg NS DAILY #1 bottle 06/24/16 [Rx] GuaiFENesin/Codeine [ROBITUSSIN w/CODEINE] 10 ml PO Q6HR PRN #160 ml 06/24/16 [ Rx] Loratadine [Claritin] 10 mg PO DAILY #30 tablet 06/24/16 [Rx] PredniSONE 10 mg PO DAILY #41 tablet 06/24/16 [Rx] Sodium Chloride/Aloe Nasal Gel [[place] Saline Nasal Gel] 1 appl NS Q6HR #1 tube [Rx] Allergies/Adverse Reactions: Allergies pain patches Adverse Reaction (Uncoded 06/22/16 12:15) See Comments pt states was really sick -doesn't know the name of patches Procedures/tests Complete & Pending: Procedures Performed prior 72 hours Category Date Time Status CT soft tissue neck wo con [CT] Routine Cat Scan 06/23/16 11:30 Completed Date of admission: 06/21/16 23:03 Primary care physician: Daniel Tirado Consults: 06/23/16 08:43 Consult to Pulmonology [CONS] Routine Consulting Provider: [facility] Reason for Consult: Lung nodules, possible laryngeal nodule, atypical pneumonia Call Completed: Yes 06/23/16 16:59 Consult to ENT [CONS] Routine Consulting Provider: SARINA Petersen Reason for Consult: possible laryngeal nodule Call Completed: Yes Discharging clinician: Shira Hickey Anticipated date of discharge: 06/24/16 (back to his baseline) - Patient Status Disposition: Home, Self-Care Condition: Fair Functional capacity at discharge: independent ambulation Overall status at discharge: patient is back to baseline - Discharge Instructions Follow Up With: Daniel Tirado DO [Primary Care Provider] - 06/26/16 3:00 pm [facility] [Provider Group] Additional Instructions: Follow-up with primary care provider as scheduled. Follow-up with pulmonology as needed - Diet and Activity Activity: increase activity as tolerated Diet: low salt diet Hospital course: Mr. Huerta is a 70 year old male with past medical history of COPD/emphysema, hypertension, PAD. Patient presented to the emergency department chief complaint one-month history of intermittent productive cough and at times paroxysmal and that takes his breath away associated with shortness of breath. Patient also reporting chest pain worsened with coughing. Patient stating at times he was nearly syncopal during his bouts of coughing. He denied fever or chills or sick contacts. Patient was seen by his primary care provider as well as urgent care as well as [facility] emergency Department. Patient was prescribed antibiotic and inhalers but failed outpatient treatment. Workup in the emergency department unremarkable. Chest CTA negative for acute processes with incidental findings of pulmonary nodules. Patient was admitted to the hospitalist service for further evaluation and management. While admitted, patient displayed symptoms consistent with COPD exacerbation as well as an upper respiratory tract infection. He was started on Claritin and Flonase and his symptoms abated. Also why he was admitted, he said he felt as if his throat had a lump in it. ENT was brought on board and performed a bedside scope which was negative for any masses or acute processes. He also had a CAT scan of soft tissues of his neck that was also unremarkable other than chronic sinusitis and emphysema. Pulmonology was also brought on board who recommended outpatient follow-up for possible bronchoscopy and/or repeat chest CT at their discretion. At home, patient is on 2 L per nasal cannula as needed and he was tolerating room air on day of discharge. He denied shortness of breath above his normal day of discharge. He was able to tolerate a regular diet without drooling, stridor, dysphagia. He was discharged home in stable condition with close outpatient follow-up recommended. ITS Impressions Chest CTA 06/21/16 18:02 IMPRESSION: 1. No evidence of pulmonary embolism. 2. A few small irregular nodular opacities in the anterior segment of the right upper lobe that may represent an infectious process. See recommendations below. 3. New right hilar lymphadenopathy is nonspecific but may be reactive. 4. COPD. Fleischner Society guidelines for follow-up and management of pulmonary nodules: Nodule size greater than 8 mm In low-risk and high-risk patients follow-up CT at around 3, 9, and 24 months, dynamic contrast-enhanced CT, PET, and/or biopsy. Low risk patients include individuals with minimal or absent history of smoking and other known risk factors. High risk patients include individuals with a history of smoking or other known risk factors. Radiology 2005; [id number] D/ / Matt Simons MD / Matt Simons MD Interpreting Provider: Matt Simons MD Soft Tissue Neck CT 06/23/16 11:30 IMPRESSION: 1. Evaluation the soft tissues is compromised due to lack of IV contrast. Within this limitation, no gross abnormal cervical soft tissue mass or abnormal cervical lymphadenopathy. 2. [place] paranasal as mucosal thickening suggesting chronic sinusitis. 3. Upper lung emphysema. D/ / Leroy Love MD / Leroy Love MD Interpreting Provider: Leroy Love MD - Time Spent with Patient Total time spent providing and/or coordinating discharge services: - Constitutional Vitals: Temp Pulse Resp BP Pulse Ox 98.2 F 81 15 145/76 90 L 06/24/16 11:54 06/24/16 11:54 06/24/16 11:54 06/24/16 11:54 06/24/16 11:54 General appearance: Present: A&O X 3, pleasant, no acute distress, answers questions appropriately - Head Head exam: Present: atraumatic, normocephalic - Eye Eye exam: Present: PERRL, conjuntiva pink, sclera anicteric Pupils: Present: PERRL - Neck Neck exam general surgery: Present: supple, trachea midline. Absent: lymphadenopathy - Respiratory Respiratory exam: Present: CTAB. Absent: accessory muscle use, rales, respiratory distress, rhonchi, wheezes - Cardiovascular Cardiovascular exam: Present: RRR, +S1, +S2. Absent: diastolic murmur, gallop, rubs, systolic murmur - GI/Abdominal GI/Abdominal exam: Present: normal bowel sounds, soft, no peritoneal signs. Absent: distended, tenderness - Extremities Exam Extremities exam: Present: warm, radial pulses palpable and symetrical. Absent : calf tenderness, cyanotic, pedal edema - Neurological Exam Neurological exam: Present: alert, CN II-XII intact, normal gait, oriented X3, no focal deficits, strengths equal and symetr throughout. Absent: pronater drift, facial droop, speech deficit - Skin Skin exam: Present: dry, intact, normal color, warm
--- NOTE | 2016-06-24 16:36 | ENT - Procedure Note ---
Date of procedure: 06/24/16 Pre-op diagnosis: Foreign body sensation Procedure: Flexible laryngoscopy CPT 68600 Flexible laryngoscopy: Procedure was explained to the patient at the bedside verbal consent was obtained. Bilateral nares are sprayed with a 50-50 mixture of oxymetazoline and topical lidocaine. Time was given to allow anesthesia as well as decongestion of the nasal airway. Flexible laryngoscope was then advanced into the right naris. Nasal mucosa was dry and atrophic. Scope was further advanced, nasopharynx was within normal limits, tongue base was normal without mass or lesion, epiglottis was normal, piriform sinuses were open without mass or obstruction. True vocal cords had normal mobility and normal mucosa . Good glottic opening with full AB duction of the vocal cords bilaterally. Subglottis showed no obstruction. Interarytenoid space had slight pachydermic changes. There was mild supraglottic edema and erythema that was diffuse. No obstruction or masses visualized. Scope was removed. Patient tolerated this procedure well. Overall assessment shows that patient has changes to her mucosa secondary to reflux. There is no obstruction or mass, or foreign body blocking airway. Airway is fully patent. Anesthesia: topical Surgeon: Claudine Chance Estimated blood loss (cc): 0 Condition: stable
[2016-06-25 09:31] LABS: Mycoplasma pneumoniae IgG 0.06 U/L (<=0.09)
== END 2016-06-24 14:11 | disposition home or self-care (01) | DRG 190 ==
LOC: UNDODISIN → 3BNU 17:50 → EMEROO 17:50 → 3BNU 20:49 → SUATTDRO 23:03
PROVIDERS: ADMIT Nurse Practitioner Family; ATTEND Nurse Practitioner Family

== ENCOUNTER 2018-11-13 18:15 | Observation (INO) ==
--- NOTE | 2018-11-13 18:25 | Emergency Department Note ---
Disposition Clinical Impression: Acute bronchiolitis due to other infectious organisms, Elevated troponin Disposition: Admitted As Inpatient Condition: Fair Time of Disposition: 21:09 General Adult HPI - General Stated complaint: BEREKET,CP Time Seen by Provider: 11/13/18 18:20 Nursing Notes Reviewed: Yes Vital Signs Reviewed: Yes - History of Present Illness HPI Narrative: 73-year-old male with history of CHF, COPD who presents the emergency room with complaint of chest pain and shortness of breath for the past 3 days. The patient states that he has been exerting himself outside and he states his chest has been tight for the past 3 days and intermittently worsens becomes sharp. Th e patient notes that he has had worsening orthopnea and has been sleeping more upright recently. 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 The patient has been utilizing his nebulizers at home without improvement. He is on baseline 2 L of oxygen. He denies any significant leg swelling. He otherwise denies any fever, chills, nausea, vomiting, diarrhea, abdominal pain, back pain or dysuria. - Related Data Home Medications Medication Instructions Recorded Confirmed Albuterol Sulfate [Proventil Hfa] 2 inh IH Q4H PRN 06/21/16 11/13/18 Omeprazole [PriLOSEC] 20 mg PO BIDAC 06/21/16 11/13/18 Simvastatin [Zocor] 40 mg PO HS 06/21/16 11/13/18 Furosemide [Lasix] 40 mg PO DAILY PRN 06/22/16 11/13/18 traZODone [TraZODone] 50 mg PO HS PRN 06/22/16 11/13/18 Aspirin [Lo-Dose Aspirin EC] 81 mg PO DAILY 11/13/18 11/13/18 Carvedilol [Coreg] 12.5 mg PO BIDWM 11/13/18 11/13/18 Fluticasone/Salmeterol [Advair 1 each IH BID 11/13/18 11/13/18 500-50 Diskus] Gabapentin [Neurontin] 1,600 mg PO BID 11/13/18 11/13/18 Tadalafil [Cialis] 20 mg PO DAILY PRN 11/13/18 11/13/18 Allergies Allergy/AdvReac Type Severity Reaction Status Date / Time pain patches AdvReac See Uncoded 06/22/16 12:15 Comments Review of Systems: ROS per history of present illness, all other systems reviewed and negative or normal. All systems ED: reviewed and negative except as stated. Review of Systems: As Per HPI Past Medical History - Past Medical History Medical history: Reports: COPD, GERD, hypertension, kidney stones, peripheral artery disease, other (BPH) Surgical history: Reports: other (carpal tunnel repair) Psychiatric history: Reports: no psych history - Social History Smoking Status: Former smoker Smokeless Tobacco Status: No Alcohol use: Reports: unknown Drug use: Reports: none Physical Exam General: Conversant. No apparent distress. Follow commands. Appears stated age. Neck: No JVD. Trachea midline. Neck supple. Eyes: PERRL. No scleral icterus. HENT: Normocephalic and atraumatic. Moist mucus membranes. Cardiovascular: Regular rate and rhythm. Normal S1 and S2. No murmurs appreciated. Normal capillary refill. Extremities well perfused with 2+ distal pulses bilaterally. No edema. Pulmonary: Tachypneic. Patient has tight breath sounds bilaterally. No appreciable crackles. Speaks in full sentences. Abdomen: Soft, nondistended, and tontender. No bruits or masses. No guarding. Neuro: Alert and oriented x3. No slurred speech. No focal deficits noted. Skin: No rashes noted on visualized skin. Musculoskeletal: No bony abnormalities visualized. Moves all extremities. Psych: Normal mood. Pleasant. Makes appropriate eye contact. Course Vital Signs Temperature 98.2 F 11/13/18 18:55 Pulse Rate 104 11/13/18 18:55 Respiratory Rate 22 11/13/18 18:55 Blood Pressure 134/79 11/13/18 18:55 O2 Sat by Pulse Oximetry 98 11/13/18 18:55 Temperature 98.0 F 11/13/18 23:23 Pulse Rate 90 11/13/18 23:23 Respiratory Rate 19 11/13/18 23:23 Blood Pressure 122/82 11/13/18 23:23 O2 Sat by Pulse Oximetry 95 11/13/18 23:23 Oxygen Delivery Oxygen Delivery Nasal Cannula Medical Decision Making - [facility] Narrative Medical decision making narrative: 73-year-old male with history of CHF, COPD who presents the emergency department with complaint of chest pain or shortness breath for the past 3 days. Patient states he has had tightness in his chest and intermittently becomes worsened sharpens. He also notes orthopnea. Vital signs are stable upon arrival and he continues on his home 2 L. He is borderline tachycardic however and continues to be short of breath with chest pain. Patient was given aspirin and nitroglycerin. Patient did undergo chest CTA to evaluate for pulmonary embolism. This shows no evidence of pulmonary embolism. There are scattered nodular tree in blood opacities in bilateral lungs consistent with infectious bronchiolitis. There is also moderate emphysematous changes. The patient does have leukocytosis up to 13.1. Troponin elevated at 0.04. He does not have ischemic EKG changes. Given the patient's elevated troponin, infectious bronchiolitic changes did place the patient on coverage for community-acquired pneumonia including Rocephin and azithromycin. Discussed case with on-call hospitalist Dr. Angulo who agrees with plan for admission and accepts the jose ent to the inpatient service. Patient agrees with and understands course of treatment plan including plan for admission. All questions answered. - Medical Records Medical records reviewed: Yes I reviewed the patient's medical records. - Lab Data Lab results reviewed: Yes I reviewed the patient's lab results. Result diagrams: 11/13/18 18:47 11/13/18 18:47 Lab Results 11/13/18 11/13/18 11/13/18 Range/Units 18:47 18:47 18:47 WBC 13.1 H (4.3-11.1) K/mcL RBC 5.08 (4.19-5.50) M/mcL Hgb 15.1 (12.9-16.9) g/dL Hct 44.8 (37.5-50.1) % MCV 88.2 (83.0-100.0) fL MCH 29.7 (28.0-33.3) pg MCHC 33.7 (31.6-35.5) g/dL RDW 13.1 (11.5-14.5) % Plt Count 165 (140-400) K/mcL MPV 11.7 (9.4-12.4) fL Immature Gran % 0.4 (0-4) % Seg Neutrophils % 71.9 % Lymphocytes % 14.2 % Monocytes % 9.9 % Eosinophils % 3.1 % Basophils % 0.5 % Neutrophils # 9.4 H (1.6-8.9) K/mcL Lymphocytes # 1.9 (0.6-4.6) K/mcL Monocytes # 1.3 (0.0-1.3) K/mcL Eosinophils # 0.4 (0.0-0.6) K/mcL Basophils # 0.1 (0.0-0.2) K/mcL PT 13.7 H (9.4-12.1) Seconds INR 1.2 APTT 31.0 (26.0-36.0) Seconds Sodium (136-145) mEq/L Potassium (3.5-5.1) mEq/L Chloride (98-107) mEq/L Carbon Dioxide (23-29) mEq/L BUN (8-23) mg/dL Creatinine (0.70-1.30) mg/dL Est GFR ( Amer) (> 60) Est GFR (Non-Af Amer) (> 60) BUN/Creatinine Ratio (6-26) Glucose (70-105) mg/dL Calculated Osmolality (280-300) Lactic Acid (0.5-2.2) mmol/L Calcium (8.6-10.3) mg/dL Troponin I (< 0.04) ng/mL B-Natriuretic Peptide 57 (Less than 100) pg/mL 11/13/18 11/13/18 Range/Units 18:47 21:09 WBC (4.3-11.1) K/mcL RBC (4.19-5.50) M/mcL Hgb (12.9-16.9) g/dL Hct (37.5-50.1) % MCV (83.0-100.0) fL MCH (28.0-33.3) pg MCHC (31.6-35.5) g/dL RDW (11.5-14.5) % Plt Count (140-400) K/mcL MPV (9.4-12.4) fL Immature Gran % (0-4) % Seg Neutrophils % % Lymphocytes % % Monocytes % % Eosinophils % % Basophils % % Neutrophils # (1.6-8.9) K/mcL Lymphocytes # (0.6-4.6) K/mcL Monocytes # (0.0-1.3) K/mcL Eosinophils # (0.0-0.6) K/mcL Basophils # (0.0-0.2) K/mcL PT (9.4-12.1) Seconds INR APTT (26.0-36.0) Seconds Sodium 139 (136-145) mEq/L Potassium 3.8 (3.5-5.1) mEq/L Chloride 107 (98-107) mEq/L Carbon Dioxide 23 (23-29) mEq/L BUN 28 H (8-23) mg/dL Creatinine 1.09 (0.70-1.30) mg/dL Est GFR ( Amer) > 60 (> 60) Est GFR (Non-Af Amer) > 60 (> 60) BUN/Creatinine Ratio 26 (6-26) Glucose 116 H (70-105) mg/dL Calculated Osmolality 294 (280-300) Lactic Acid 1.5 (0.5-2.2) mmol/L Calcium 9.3 (8.6-10.3) mg/dL Troponin I 0.04 H* (< 0.04) ng/mL B-Natriuretic Peptide (Less than 100) pg/mL - Radiology Data Radiology results reviewed: Yes I reviewed the patient's radiology results. Chest X-Ray 11/13/18 18:33 IMPRESSION: Congestive heart failure most likely accounts for the pulmonary findings. D/ / Ramiro Hartman / Ramiro Hartman Interpreting Provider: Ramiro Hartman Chest CTA 11/13/18 18:47 IMPRESSION: 1. No evidence of pulmonary embolism. 2. Small scattered nodular and tree-in-bud opacities in the bilateral lungs compatible with an infectious bronchiolitis. 3. Enlarged right hilar lymph node nonspecific but unchanged from 2017. 4. Moderate emphysematous changes. D/ / Matt Simons MD / Matt Simons MD Interpreting Provider: Matt Simons MD - EKG Data EKG #1 EKG attestation: Yes I reviewed and interpreted this EKG. EKG results narrative: Sinus tachycardia rate of 99. Slight left axis deviation. There is no evidence of acute ST elevations or ischemic changes. When compared with prior from 06/21/16 there are no significant changes.
[2018-11-13] MEDS ORDERED: Ipratropium/Albuterol Neb 3 ML IH ONE (18:41)
[2018-11-13] MEDS ORDERED: Isovue-370 500 ML BOTTLE IVP ONE (18:47)
[2018-11-13 19:13] LABS: Basophils # 0.1 K/mcL (0.0-0.2); Basophils % 0.5 %; Eosinophils # 0.4 K/mcL (0.0-0.6); Eosinophils % 3.1 %; Hematocrit 44.8 % (37.5-50.1); Hemoglobin 15.1 g/dL (12.9-16.9); Immature Granulocytes % 0.4 % (0-4); Lymphocytes # 1.9 K/mcL (0.6-4.6); Lymphocytes % 14.2 %; Mean Corpuscular HGB Conc 33.7 g/dL (31.6-35.5); Mean Corpuscular Hemoglobin 29.7 pg (28.0-33.3); Mean Corpuscular Volume 88.2 fL (83.0-100.0); Mean Platelet Volume 11.7 fL (9.4-12.4); Monocytes # 1.3 K/mcL (0.0-1.3); Monocytes % 9.9 %; Neutrophils # 9.4 K/mcL (1.6-8.9); Platelet Count 165 K/mcL (140-400); Red Blood Count 5.08 M/mcL (4.19-5.50); Red Cell Distribution Width 13.1 % (11.5-14.5); Segmented Neutrophils % 71.9 %; White Blood Count 13.1 K/mcL (4.3-11.1)
[2018-11-13 19:23] LABS: INR 1.2; Prothrombin Time 13.7 Seconds (9.4-12.1)
[2018-11-13 19:29] LABS: BUN/Creatinine Ratio 26 (6-26); Blood Urea Nitrogen 28 mg/dL (8-23); Calcium 9.3 mg/dL (8.6-10.3); Carbon Dioxide 23 mEq/L (23-29); Chloride 107 mEq/L (98-107); Glucose 116 mg/dL (70-105); Osmolality,Calculated 294 (280-300); Potassium 3.8 mEq/L (3.5-5.1); Sodium 139 mEq/L (136-145); eGFR For African Americans > 60 (> 60); eGFR For Non-African Americans > 60 (> 60)
[2018-11-13 19:37] LABS: Troponin I 0.04 ng/mL (< 0.04)
[2018-11-13] MEDS ORDERED: Nitroglycerin 0.4 MG TAB.SUBL SL PRN (19:38)
[2018-11-13] MEDS ORDERED: Aspirin 81 MG TAB.CHEW PO STA (19:39)
[2018-11-13] MEDS ORDERED: Azithromycin 500 MG in D5% in Water 250 ML IVPB STA (20:42)
[2018-11-13] MEDS ORDERED: cefTRIAXone 1,000 MG in Water for inj. (sterile) 10 ML IVP STA (20:42)
--- NOTE | 2018-11-13 21:08 | Emergency Department Note ---
Disposition Clinical Impression: Acute bronchiolitis due to other infectious organisms, Elevated troponin Disposition: Admitted As Inpatient Condition: Good Referrals: Daniel Tirado DO [Primary Care Provider] - Time of Disposition: 21:09 General Adult HPI - General Chief complaint: ED Chest Pain Stated complaint: BEREKET,CP Time Seen by Provider: 11/13/18 18:20 Source: patient, family Limitations: no limitations - History of Present Illness Pain Scale: 0 - Related Data Home Medications Medication Instructions Recorded Confirmed Albuterol Sulfate [Proventil Hfa] 2 inh IH Q4H PRN 06/21/16 11/13/18 Omeprazole [PriLOSEC] 20 mg PO BIDAC 06/21/16 11/13/18 Simvastatin [Zocor] 40 mg PO HS 06/21/16 11/13/18 Furosemide [Lasix] 40 mg PO DAILY PRN 06/22/16 11/13/18 traZODone [TraZODone] 50 mg PO HS PRN 06/22/16 11/13/18 Aspirin [Lo-Dose Aspirin EC] 81 mg PO DAILY 11/13/18 11/13/18 Carvedilol [Coreg] 12.5 mg PO BIDWM 11/13/18 11/13/18 Fluticasone/Salmeterol [Advair 1 each IH BID 11/13/18 11/13/18 500-50 Diskus] Gabapentin [Neurontin] 1,600 mg PO BID 11/13/18 11/13/18 Tadalafil [Cialis] 20 mg PO DAILY PRN 11/13/18 11/13/18 Allergies Allergy/AdvReac Type Severity Reaction Status Date / Time pain patches AdvReac See Uncoded 06/22/16 12:15 Comments Past Medical History - Past Medical History Medical history: Reports: COPD, GERD, hypertension, kidney stones, peripheral artery disease, other Surgical history: Reports: other (carpal tunnel repair) Psychiatric history: Reports: no psych history - Social History Smoking Status: Former smoker Smokeless Tobacco Status: No Alcohol use: Reports: unknown Drug use: Reports: none Physical Exam - General Limitations: no limitations General appearance: alert, in no apparent distress Course Vital Signs Temperature 98.2 F 11/13/18 18:55 Pulse Rate 104 11/13/18 18:55 Respiratory Rate 22 11/13/18 18:55 Blood Pressure 134/79 11/13/18 18:55 O2 Sat by Pulse Oximetry 98 11/13/18 18:55 Temperature 98.2 F 11/13/18 18:55 Pulse Rate 106 11/13/18 20:10 Respiratory Rate 18 11/13/18 20:10 Blood Pressure 161/98 11/13/18 20:10 O2 Sat by Pulse Oximetry 96 11/13/18 20:10 Oxygen Delivery Oxygen Delivery Room Air Medical Decision Making - Lab Data Result diagrams: 11/13/18 18:47 11/13/18 18:47 Lab Results 11/13/18 11/13/18 11/13/18 Range/Units 18:47 18:47 18:47 WBC 13.1 H (4.3-11.1) K/mcL RBC 5.08 (4.19-5.50) M/mcL Hgb 15.1 (12.9-16.9) g/dL Hct 44.8 (37.5-50.1) % MCV 88.2 (83.0-100.0) fL MCH 29.7 (28.0-33.3) pg MCHC 33.7 (31.6-35.5) g/dL RDW 13.1 (11.5-14.5) % Plt Count 165 (140-400) K/mcL MPV 11.7 (9.4-12.4) fL Immature Gran % 0.4 (0-4) % Seg Neutrophils % 71.9 % Lymphocytes % 14.2 % Monocytes % 9.9 % Eosinophils % 3.1 % Basophils % 0.5 % Neutrophils # 9.4 H (1.6-8.9) K/mcL Lymphocytes # 1.9 (0.6-4.6) K/mcL Monocytes # 1.3 (0.0-1.3) K/mcL Eosinophils # 0.4 (0.0-0.6) K/mcL Basophils # 0.1 (0.0-0.2) K/mcL PT 13.7 H (9.4-12.1) Seconds INR 1.2 APTT 31.0 (26.0-36.0) Seconds Sodium (136-145) mEq/L Potassium (3.5-5.1) mEq/L Chloride (98-107) mEq/L Carbon Dioxide (23-29) mEq/L BUN (8-23) mg/dL Creatinine (0.70-1.30) mg/dL Est GFR ( Amer) (> 60) Est GFR (Non-Af Amer) (> 60) BUN/Creatinine Ratio (6-26) Glucose (70-105) mg/dL Calculated Osmolality (280-300) Calcium (8.6-10.3) mg/dL Troponin I (< 0.04) ng/mL B-Natriuretic Peptide 57 (Less than 100) pg/mL 11/13/18 Range/Units 18:47 WBC (4.3-11.1) K/mcL RBC (4.19-5.50) M/mcL Hgb (12.9-16.9) g/dL Hct (37.5-50.1) % MCV (83.0-100.0) fL MCH (28.0-33.3) pg MCHC (31.6-35.5) g/dL RDW (11.5-14.5) % Plt Count (140-400) K/mcL MPV (9.4-12.4) fL Immature Gran % (0-4) % Seg Neutrophils % % Lymphocytes % % Monocytes % % Eosinophils % % Basophils % % Neutrophils # (1.6-8.9) K/mcL Lymphocytes # (0.6-4.6) K/mcL Monocytes # (0.0-1.3) K/mcL Eosinophils # (0.0-0.6) K/mcL Basophils # (0.0-0.2) K/mcL PT (9.4-12.1) Seconds INR APTT (26.0-36.0) Seconds Sodium 139 (136-145) mEq/L Potassium 3.8 (3.5-5.1) mEq/L Chloride 107 (98-107) mEq/L Carbon Dioxide 23 (23-29) mEq/L BUN 28 H (8-23) mg/dL Creatinine 1.09 (0.70-1.30) mg/dL Est GFR ( Amer) > 60 (> 60) Est GFR (Non-Af Amer) > 60 (> 60) BUN/Creatinine Ratio 26 (6-26) Glucose 116 H (70-105) mg/dL Calculated Osmolality 294 (280-300) Calcium 9.3 (8.6-10.3) mg/dL Troponin I 0.04 H* (< 0.04) ng/mL B-Natriuretic Peptide (Less than 100) pg/mL Attestation Statement - Attestation Attestation: I reviewed the residents documentation and agree with the residents assessment and plan of care. I have personally had face to face time with the patient. (Brief History, Brief Exam, and MDM) I personally supervised and was present for the santiago/critical portions of the following procedures completed by the resident: EKG 73 year old male presents ot the ED with complaints of chest pain and dyspnea and it appers that he had infectious bronchioliotis and it apepars that he now has elevated troponoin which is new for him and could be secondary to ischemic demand. admit to medicine
--- NOTE | 2018-11-13 22:27 | Internal Med History&Physical ---
Date of Encounter: 11/13/18 Time of Encounter: 22:19 Internal Medicine - H&P: HPI Chief complaint: Chest pain and shortness of breath History of present illness: Mr. Huerta is a 73 year old male with a past medical history of COPD on 2 L home oxygen at baseline, diabetes, GERD, hypertension, CHF and peripheral artery disease who presented to the ED complaints of chest pain and shortness of breath. Symptoms are been ongoing for the past 3 days. Patient has been noting increasing shortness of breath with exertion such as getting up and going to the bathroom. He has noted some lower extremity edema and orthopnea. Patient also endorses wheezing despite taking his inhalers at home. Patient has cough that is nonproductive but at baseline. He is on 2 L as needed. Patient is a former smoker and quit in 2002. Patient also endorses intermittent chest pain that has been going on for the past 3 days as well. The pain is substernal nonradiating and typically occurs with exertion and improves with rest. Patient does also endorse aggravation with deep inspiration. On arrival patient was afebrile, mildly tachycardic with a heart rate of 104 and blood pressure of 134/79. Labs were notable for a mild neutrophilic leukocytosis of 13.1, troponin of 0.04 and BNP of 57. Review of EKG shows normal sinus rhythm with a heart rate of 99. No evidence of any ischemic ST or T-wave changes. CTA showed no evidence of PE with moderate emphysematous changes and small scattered nodular tree-in-bud opacities bilaterally compatible with an acute infectious bronchiolitis. Patient was given a loading dose of aspirin, DuoNeb's and ceftriaxone/azithromycin. On my assessment patient was lying in bed in no acute distress on 2 L nasal cannula. No conversational dyspnea. Does not report chest pain at this time. Patient wishes to be DNR/DNI. Past Med Surg Social Fam HX - Past Medical History Medical history: COPD, GERD, hypertension, kidney stones, peripheral artery disease, other Additional medical history: kidney stones, chronic back pain, uterine stones, emphysema, BPH Psychiatric history: no psych history - Past Surgical History Surgical History: other (carpal tunnel repair) Additional surgical history: aortic bypass, hernial mesh - Social History Smoking Status: Former smoker Smokeless Tobacco Status: No Alcohol use: unknown Drug use: none - Family History Mother Living Status: Hx Family Endocrine Disorder: Yes (DM, kidney disease) Father Living Status: Internal Medicine - H&P: Meds Albuterol Sulfate [Proventil Hfa] 2 inh IH Q4H PRN 06/21/16 [History] Omeprazole [PriLOSEC] 20 mg PO BIDAC 06/21/16 [History] Simvastatin [Zocor] 40 mg PO HS 06/21/16 [History] Furosemide [Lasix] 40 mg PO DAILY PRN 06/22/16 [History] traZODone [TraZODone] 50 mg PO HS PRN 06/22/16 [History] Aspirin [Lo-Dose Aspirin EC] 81 mg PO DAILY 11/13/18 [History] Carvedilol [Coreg] 12.5 mg PO BIDWM 11/13/18 [History] Fluticasone/Salmeterol [Advair 500-50 Diskus] 1 each IH BID 11/13/18 [History] Gabapentin [Neurontin] 1,600 mg PO BID 11/13/18 [History] Tadalafil [Cialis] 20 mg PO DAILY PRN 11/13/18 [History] Allergy/AdvReac Type Severity Reaction Status Date / Time pain patches AdvReac See Uncoded 06/22/16 12:15 Comments All Systems PM: A 10-system review of systems was performed and is negative for pertinent findings except as documented above in the HPI. - Constitutional Constitutional: no chills, no fever(s), no night sweats - EENT Eyes: no change in vision, no discharge, no pain, no photophobia Ears: no ear discharge, no ear pain, no tinnitus Nose, mouth and throat: no dysphagia, no nasal discharge, no neck pain, no sore throat - Cardiovascular Cardiovascular ROS IM: no chest pain, no diaphoresis, no dyspnea, no lightheadedness, no palpitations, no syncope - Respiratory Respiratory: no cough, no dyspnea, no wheezing, no excessive phlegm production - Gastrointestinal Gastrointestinal: no abdominal pain, no diarrhea, no hematemesis, no hematochezia, no melena, no nausea, no vomiting - Musculoskeletal Musculoskeletal ROS IM: no numbness, no tingling - Integumentary Integumentary IM: no rash, no unusual bruising - Neurological Neurological ROS: no confusion, no convulsions, no focal weakness, no numbness, no tingling, no tremor(s) - Hematologic/Lymphatic Hematologic/Lymphatic: no easy bruising - Constitutional Vitals: Temp Pulse Resp BP Pulse Ox 98.2 F 106 18 161/98 96 11/13/18 18:55 11/13/18 20:10 11/13/18 20:10 11/13/18 20:10 11/13/18 20:10 Exam: General: Alert and oriented 3 Skin:Normal color, no rash, no lesions. HEENT:EOM, pupils equal, round and reactive. Cardiovascular:Normal S1 & S2, no rubs, murmurs or gallops. No JVD. Pulse regular. Lungs: Bibasilar crackles more prominent on the left posterior thorax Abdomen:Soft, non-tender, no rigidity. Extremities:No deformity, no edema or tenderness, no joint swelling or clubbing. Neurological:Normal cognition and motor skills. Pulses:Carotid and radial pulses normal +2. Rest of the physical exam is non contributory Internal Med - H&P Results - Labs CBC & Chem 7: 11/14/18 00:53 11/14/18 00:53 Labs: Short CBC 11/13/18 Range/Units 18:47 WBC 13.1 H (4.3-11.1) K/mcL Hgb 15.1 (12.9-16.9) g/dL Hct 44.8 (37.5-50.1) % Plt Count 165 (140-400) K/mcL Neutrophils # 9.4 H (1.6-8.9) K/mcL BMP 11/13/18 18:47 Sodium 139 Potassium 3.8 Chloride 107 Carbon Dioxide 23 BUN 28 H Creatinine 1.09 Glucose 116 H Calcium 9.3 Cardiac Enzymes 11/13/18 Range/Units 18:47 Troponin I 0.04 H* (< 0.04) ng/mL - Impressions ITS Impressions Chest X-Ray 11/13/18 18:33 IMPRESSION: Congestive heart failure most likely accounts for the pulmonary findings. D/ / Ramiro Hartman / Ramiro Hartman Interpreting Provider: Ramiro Hartman Chest CTA 06/22/19 18:47 IMPRESSION: 1. No evidence of pulmonary embolism. 2. Small scattered nodular and tree-in-bud opacities in the bilateral lungs compatible with an infectious bronchiolitis. 3. Enlarged right hilar lymph node nonspecific but unchanged from 2017. 4. Moderate emphysematous changes. D/ / Matt Simons MD / Matt Simons MD Interpreting Provider: Matt Simons MD - Assessment and Plan (1) Acute bronchiolitis due to other infectious organisms Current Visit: Yes Status: Acute Assessment and plan: CTA of the chest showed small scattered nodular and tree-in-bud opacities in the left bilateral lungs compatible with an infectious bronchiolitis. Patient has nonproductive cough and leukocytosis. -Patient was started on treatment for community-acquired pneumonia -We will obtain strep and Legionella and urine antigen. (2) Elevated troponin Current Visit: Yes Status: Acute Assessment and plan: Patient presenting with an elevated troponin of 0.04 in the setting of reported shortness of breath and chest pain. Etiology of patient's chest pain at this time is uncertain though there is low suspicion for ACS at this time. -We will trend troponin for now. (3) Chest pain Current Visit: Yes Status: Acute Assessment and plan: Patient presenting with reports of chest pain that is substernal nonradiating described as pressure-like occurring with exertion and alleviated with rest and nitroglycerin. However patient also endorses a pleuritic component. Found to have a mildly elevated troponin of 0.04. EKG does not show any ischemic changes Records show a nuclear stress test performed in 2016 which was negative for ischemia or infarct. EF of the time was 67%. Differential includes NSTEMI versus demand ischemia. Patient received loading dose of aspirin in the ED -Telemetry -We will trend troponin -Sublingual nitroglycerin -NPO after midnight in the event more concerning etiology presents itself -Continue beta fernando. We will give high-dose statin. -We will obtain an echocardiogram in the morning -Consider cardiology based on results. Qualifiers: Ischemic chest pain type: unspecified angina pectoris type Qualified Code(s): I25.9 - Chronic ischemic heart disease, unspecified (4) Dyspnea Current Visit: Yes Status: Acute Assessment and plan: Patient presenting with 3 day history of worsening dyspnea primarily with exer tion associated with orthopnea, lower extremity edema and wheezing. Patient does have bibasilar crackles on lung examination with trace lower extremity edema. Mildly elevated troponin CTA negative for PE however did show evidence concerning for bronchiolitis. Etiology may be multifactorial with possible COPD, CHF, pneumonia or ACS. -Continue supportive oxygen -Treat for COPD and CHF exacerbation -And antibiotics for possible pneumonic infectious process -We will obtain echocardiogram in the morning Qualifiers: Dyspnea type: dyspnea on exertion Qualified Code(s): R06.09 - Other forms of dyspnea (5) COPD exacerbation Current Visit: Yes Status: Acute Assessment and plan: Concern for mild COPD exacerbation. -Duo nebs scheduled; steroids -Continue antibiotics (6) Acute exacerbation of congestive heart failure Current Visit: Yes Status: Acute Assessment and plan: History of dyspnea with exertion associated with orthopnea and lower extremity edema. -Strict I's and O's; daily weights -We will start patient on 40 mg of Lasix IV push daily -We will obtain echocardiogram Qualifiers: Qualified Code(s): I50.9 - Heart failure, unspecified (7) DVT prophylaxis Current Visit: Yes Status: Acute Assessment and plan: Subcutaneous heparin - Time Spent With Patient Total time spent is greater than 50% in coordination of care (as documented) at patient's floor/unit and/or counseling patient:
[2018-11-13] MEDS ORDERED: traZODone 50 MG TABLET PO PRN (22:28)
[2018-11-14] MEDS ORDERED: Nitroglycerin 0.4 MG TAB.SUBL SL PRN (00:06)
[2018-11-14] MEDS: Furosemide 40 MG/4 ML VIAL IVP SCH ×2 (00:15→08:16)
[2018-11-14 01:14] LABS: Basophils # 0.1 K/mcL (0.0-0.2); Basophils % 0.7 %; Eosinophils # 0.3 K/mcL (0.0-0.6); Eosinophils % 2.3 %; Hematocrit 46.3 % (37.5-50.1); Hemoglobin 15.2 g/dL (12.9-16.9); Immature Granulocytes % 0.3 % (0-4); Lymphocytes # 1.5 K/mcL (0.6-4.6); Lymphocytes % 13.5 %; Mean Corpuscular HGB Conc 32.8 g/dL (31.6-35.5); Mean Corpuscular Hemoglobin 29.1 pg (28.0-33.3); Mean Corpuscular Volume 88.5 fL (83.0-100.0); Mean Platelet Volume 11.9 fL (9.4-12.4); Monocytes # 1.1 K/mcL (0.0-1.3); Monocytes % 9.8 %; Neutrophils # 8.4 K/mcL (1.6-8.9); Platelet Count 171 K/mcL (140-400); Red Blood Count 5.23 M/mcL (4.19-5.50); Red Cell Distribution Width 13.1 % (11.5-14.5); Segmented Neutrophils % 73.4 %; White Blood Count 11.4 K/mcL (4.3-11.1)
[2018-11-14 01:22] LABS: INR 1.2; Prothrombin Time 13.6 Seconds (9.4-12.1)
[2018-11-14 01:25] LABS: Activated Partial Thrombo Time 28.8 Seconds (26.0-36.0)
[2018-11-14 01:34] LABS: Troponin I 0.04 ng/mL (< 0.04)
[2018-11-14 02:49] LABS: Estimated Average Glucose 123 mg/dl
[2018-11-14] MEDS: Ipratropium/Albuterol Neb 3 ML IH SCH ×6 (03:36→23:19)
[2018-11-14 04:25] LABS: Alanine Aminotransferase 20 Units/L (7-52); Albumin 4.4 g/dL (3.5-5.7); Albumin/Globulin Ratio 1.4 (1.1-2.2); Alkaline Phosphatase 94 Units/L (34-104); Aspartate Amino Transferase 16 Units/L (13-39); BUN/Creatinine Ratio 27 (6-26); Bilirubin,Total 0.7 mg/dL (0.3-1.0); Blood Urea Nitrogen 30 mg/dL (8-23); Calcium 9.3 mg/dL (8.6-10.3); Carbon Dioxide 25 mEq/L (23-29); Chloride 104 mEq/L (98-107); Chol/HDL Ratio 3.2 (0-4.9); Cholesterol 145 mg/dL (< 200); Globulin 3.1 g/dL (2.4-3.5); Glucose 127 mg/dL (70-105); HDL Cholesterol 45 mg/dL (40-59); LDL Cholesterol,Calculated 83 mg/dL (0-99); Osmolality,Calculated 298 (280-300); Potassium 3.6 mEq/L (3.5-5.1); Sodium 140 mEq/L (136-145); Total Protein 7.5 g/dL (6.4-8.9); Triglycerides 83 mg/dL (< 150); eGFR For African Americans > 60 (> 60); eGFR For Non-African Americans > 60 (> 60)
[2018-11-14] MEDS ORDERED: MethylPREDNISolone 40 MG/ML VIAL IVP SCH (06:00)
[2018-11-14] MEDS: *HR* Heparin 5,000 UNIT/ML VIAL SQ SCH ×3 (06:22→20:41)
--- NOTE | 2018-11-14 07:37 | Internal Med Progress Note ---
Hospitalist Progress Note - Encounter Date of Encounter: 11/14/18 Time of Encounter: 07:35 - Subjective Interval History: Pt states this AM he feels much better than yesterday. Says he's been coughing more than usual but without increased sputum, much more short of breath, achy, and tired, with chills and sweats. Did have some chest pressure yesterday, too. No N/V/D, no abd pain, no increase in baseline leg swelling. - Exam Vitals: Temp Pulse Resp BP Pulse Ox 98.1 F 87 16 149/88 94 11/14/18 07:20 11/14/18 07:20 11/14/18 07:20 11/14/18 07:20 11/14/18 07:20 Exam: General: NAD, good eye contact, well appearing Thoracic: bibasilar coarse breath sounds, decent aeration Cardio: Normal S1 and S2, regular rate and rhythm Abdomen: Soft, nontender Extremities: Warm, well perfused. DP pulses 2+ b/l. Does have b/l 1+ pitting edema to upper shins Skin: Intact. No rashes, bruises, or ulcers Neuro: Awake, fully oriented. Speech fluent - Summary of Assessment and Plan Summary of Assessment and Plan: Nik Huerta is a 73 M w hx COPD on 2L, HFpEF, PAD, HTN, DM2, who p/w subacute exertional dyspnea, CP, productive cough, and general malaise, found to have leukocytosis, wet CXR, CT showing tree-in-bud opacities, concerning for possible bronchiolitis causing COPD exacerbation as well as mild CHF exacerbation. Bronchiolitis: fits w symptoms of fatigue/chills/myalgias, clinically improving - RVP - continue empiric rocephin/azitho COPD: on my exam today there is good aeration and minimal end-expiratory wheezing - space nebs to q6h&prn - deescalate steroids to prednisone 40 daily x5d - home inhalers Acute on chronic HFpEF: presented perhaps in mild acute exacerbation, pedal edema and CXR w congestion, good UOP overnight and today feels much better - resume PO diuresis - TTE pending Chest pain: likely 2/2 bronchiolitis and coughing above, now resolved, however does have trivially elevated trop 0.04 stable on repeat - TTE pending as above Chronic hypoxic respiratory failure: home 2L DM2: controlled, monitor while on steroids PAD: home statin, ASA HTN: home coreg PPx: sqh FEN: cardiac ADA, no MIVF Lines: PIV Consults: Code: Full Dispo: obs, anticipate 1-2 days, will be homegoing Internal Medicine: Result - Labs CBC & Chem 7: 11/14/18 00:53 11/14/18 00:53 Labs: Short CBC 11/13/18 11/14/18 Range/Units 18:47 00:53 WBC 13.1 H 11.4 H (4.3-11.1) K/mcL Hgb 15.1 15.2 (12.9-16.9) g/dL Hct 44.8 46.3 (37.5-50.1) % Plt Count 165 171 (140-400) K/mcL Neutrophils # 9.4 H 8.4 (1.6-8.9) K/mcL BMP 11/13/18 11/14/18 18:47 00:53 Sodium 139 140 Potassium 3.8 3.6 Chloride 107 104 Carbon Dioxide 23 25 BUN 28 H 30 H Creatinine 1.09 1.10 Glucose 116 H 127 H Calcium 9.3 9.3 Cardiac Enzymes 11/13/18 11/14/18 11/14/18 Range/Units 18:47 00:53 06:45 Troponin I 0.04 H* 0.04 H* 0.04 H* (< 0.04) ng/mL Liver Function 11/14/18 Range/Units 00:53 Total Bilirubin 0.7 (0.3-1.0) mg/dL AST 16 (13-39) Units/L ALT 20 (7-52) Units/L Alkaline Phosphatase 94 (34-104) Units/L Albumin 4.4 (3.5-5.7) g/dL - ABG Interpretation ABG results: PT/INR, D-dimer PT 13.6 Seconds (9.4-12.1) H 11/14/18 00:53 - Impressions Impressions Chest X-Ray 11/13/18 18:33 IMPRESSION: Congestive heart failure most likely accounts for the pulmonary findings. D/ / Ramiro Hartman / Ramiro Hartman Interpreting Provider: Ramiro Hartman Chest CTA 11/13/18 18:47 IMPRESSION: 1. No evidence of pulmonary embolism. 2. Small scattered nodular and tree-in-bud opacities in the bilateral lungs compatible with an infectious bronchiolitis. 3. Enlarged right hilar lymph node nonspecific but unchanged from 2017. 4. Moderate emphysematous changes. D/ / Matt Simons MD / Matt Simons MD Interpreting Provider: Matt Simons MD Consult Discharge Plan - Plan Referrals: Daniel Tirado DO [Primary Care Provider] -
[2018-11-14] MEDS: Aspirin Enteric Coated 81 MG Tablet PO SCH (08:16)
[2018-11-14] MEDS: Gabapentin 400 MG CAPSULE PO SCH ×2 (08:16→20:41)
[2018-11-14 11:00] LABS: Adenovirus Not Detected (Not Detect); Bordetella Pertussis Not Detected (Not Detect); Chlamydophila pneumoniae Not Detected (Not Detect); Coronavirus 229E Not Detected (Not Detect); Coronavirus HKU1 Not Detected (Not Detect); Coronavirus NL63 Not Detected (Not Detect); Coronavirus OC43 Not Detected (Not Detect); Human Metapneumovirus Not Detected (Not Detect); Human Rhinovirus/Enterovirus Not Detected (Not Detect); Influenza A Subtype 2009 H1 Not Detected (Not Detect); Influenza A Untypeable Not Detected (Not Detect); Influenza B Not Detected (Not Detect); Mycoplasma pneumoniae Not Detected (Not Detect); Parainfluenza Virus 1 Not Detected (Not Detect); Parainfluenza Virus 2 Not Detected (Not Detect); Parainfluenza Virus 3 Not Detected (Not Detect); Parainfluenza Virus 4 Not Detected (Not Detect); Respiratory Syncytial Virus Not Detected (Not Detect)
[2018-11-14] MEDS: predniSONE 20 MG TABLET PO SCH (11:22)
[2018-11-14] MEDS: Furosemide 40 MG TABLET PO SCH (13:13)
[2018-11-14] MEDS: Budesonide/Formoterol 160/4.5 1 PUFF INH IH SCH (20:01)
[2018-11-14] MEDS ORDERED: Budesonide/Formoterol 160/4.5 1 PUFF INH IH SCH (21:00)
[2018-11-14] MEDS ORDERED: cefTRIAXone 2,000 MG in Water for inj. (sterile) 20 ML IVPB SCH (22:00)
[2018-11-14] MEDS ORDERED: Azithromycin 500 MG in D5% in Water 250 ML IVPB SCH (22:00)
[2018-11-15] MEDS: Ipratropium/Albuterol Neb 3 ML IH SCH ×3 (03:56→11:08)
[2018-11-15] MEDS: *HR* Heparin 5,000 UNIT/ML VIAL SQ SCH (05:56)
[2018-11-15] MEDS: Budesonide/Formoterol 160/4.5 1 PUFF INH IH SCH (07:21)
--- NOTE | 2018-11-15 07:44 | Internal Med Progress Note ---
Hospitalist Progress Note - Encounter Date of Encounter: 11/15/18 Time of Encounter: 07:44 - Exam Vitals: Temp Pulse Resp BP Pulse Ox 97.5 F L 85 18 147/79 94 11/15/18 04:45 11/15/18 04:45 11/15/18 07:21 11/15/18 04:45 11/15/18 07:21 - Assessment and Plan (1) Elevated troponin Current Visit: Yes Status: Acute Internal Medicine: Result - Labs CBC & Chem 7: 11/14/18 00:53 11/14/18 00:53 - ABG Interpretation ABG results: PT/INR, D-dimer PT 13.6 Seconds (9.4-12.1) H 11/14/18 00:53 - Impressions Impressions Echocardiogram 11/14/18 22:24 Impressions: LVEF 60-65%. Normal LV chamber size, wall thickness and function. Atypical septal motion consistent with bundle branch block. Mild left ventricular diastolic dysfunction. Normal right ventricular structure and function. No evidence of pulmonary hypertension. No significant valvular dysfunction. Left Ventricular Wall Motion: Rest Echo Findings All wall segments showed normal motion. Findings: Study Quality * Technically adequate exam. ECG Findings * Sinus rhythm with BBB. Left Ventricle * LVEF 60-65%. * Normal LV chamber size, wall thickness and function. * Atypical septal motion consistent with bundle branch block. * Mild left ventricular diastolic dysfunction. Right Ventricle * Normal right ventricular structure and function. Left Atrium * Mildly dilated left atrium. Right Atrium * Normal right atrial size. Interatrial Septum * Interatrial septum not well evaluated. Aortic Valve * Trileaflet aortic valve. * Mildly sclerotic aortic valve leaflets. * No aortic regurgitation. * No aortic stenosis. Mitral Valve * Normal mitral valve structure and function. * Chordal systolic anterior motion noted, no LVOT obstruction. * No mitral regurgitation. * No mitral stenosis. Tricuspid Valve * Normal tricuspid valve structure and function. * Trace tricuspid regurgitation. * No evidence of pulmonary hypertension. Pulmonic Valve * Pulmonic valve is not well visualized. * Trace pulmonic regurgitation. Aorta * Normally sized aortic root. Pericardium * The pericardium appears normal. IVC * Normal IVC dimensions and inspiratory collapse. Pulmonary Artery * Pulmonary artery not well visualized. Consult Discharge Plan - Plan Referrals: Daniel Tirado DO [Primary Care Provider] -
[2018-11-15 07:46] VITALS: BP 141/79
[2018-11-15] MEDS: Gabapentin 400 MG CAPSULE PO SCH (07:51)
[2018-11-15] MEDS: predniSONE 20 MG TABLET PO SCH (07:51)
[2018-11-15] MEDS: Furosemide 40 MG TABLET PO SCH (07:51)
[2018-11-15] MEDS: Aspirin Enteric Coated 81 MG Tablet PO SCH (08:54)
[2018-11-15] MEDS ORDERED: Azithromycin 250 MG TABLET PO SCH (09:00)
--- NOTE | 2018-11-15 10:31 | Discharge Summary ---
Date of Encounter: 11/15/18 Time of Encounter: 10:28 Hospital course: Dear Doctors, I recently had the opportunity to care for this patient during their recent hospital stay at [facility]. Nik Huerta is a 73 M w hx COPD on 2L, HFpEF, PAD, HTN, DM2, who presented at time of admission with subacute exertional dyspnea, chest pain, productive cough, and general malaise. In the ED, he was found to have leukocytosis, wet CXR, CT showing tree-in-bud opacities, concerning for possible bronchiolitis causing COPD exacerbation as well as mild CHF exacerbation. In the hospital, patient improved significantly with combination of antibiotics, steroids, nebs, and diuresis. On day of discharge, he was maintaining O2 sats at rest on room air, and he had good aeration with faint end expiratory wheezes and minimal pretibial edema. He will follow up outpatient PCP. Of note, troponin peaked at 0.04 and repeat TTE was unremarkable. Dx: acute bronchiolitis, COPD exacerbation, mild HFpEF exacerbation, chest pain Pertinent tests/consults: CTPE suggestive of bronchiolitis, TTE unremarkable showing only BBB Follow up: PCP 1 week Tests pending: none Med changes: - new prednisone 40, last dose 11/19 - new azithro 500, last doses 11/19 - new omnicef 300 bid, last doses 11/19 Mental status: awake, fully oriented Code status: DNRCC-A / DNI It has been my pleasure participating in this patient's care. Please contact me with any questions or concerns regarding their hospital stay. Sincerely, Orlando Petty MD - Discharge Medications Prescriptions: New Azithromycin 500 mg PO DAILY #8 tablet predniSONE [PredniSONE] 40 mg PO DAILY #8 tablet Cefdinir [Omnicef] 300 mg PO BID #8 capsule Continued Simvastatin [Zocor] 40 mg PO HS Omeprazole [PriLOSEC] 20 mg PO BIDAC Albuterol Sulfate [Proventil Hfa] 2 inh IH Q4H PRN PRN Reason: shortness of breath traZODone [TraZODone] 50 mg PO HS PRN PRN Reason: Sleep Furosemide [Lasix] 40 mg PO DAILY PRN PRN Reason: swelling Carvedilol [Coreg] 12.5 mg PO BIDWM Fluticasone/Salmeterol [Advair 500-50 Diskus] 1 each IH BID Gabapentin [Neurontin] 1,600 mg PO BID Tadalafil [Cialis] 20 mg PO DAILY PRN PRN Reason: ERECTILE DYSFUNCTIN Aspirin [Lo-Dose Aspirin EC] 81 mg PO DAILY Home Medications: Albuterol Sulfate [Proventil Hfa] 2 inh IH Q4H PRN 06/21/16 [History] Omeprazole [PriLOSEC] 20 mg PO BIDAC 06/21/16 [History] Simvastatin [Zocor] 40 mg PO HS 06/21/16 [History] Furosemide [Lasix] 40 mg PO DAILY PRN 06/22/16 [History] traZODone [TraZODone] 50 mg PO HS PRN 06/22/16 [History] Aspirin [Lo-Dose Aspirin EC] 81 mg PO DAILY 11/13/18 [History] Carvedilol [Coreg] 12.5 mg PO BIDWM 11/13/18 [History] Fluticasone/Salmeterol [Advair 500-50 Diskus] 1 each IH BID 11/13/18 [History] Gabapentin [Neurontin] 1,600 mg PO BID 11/13/18 [History] Tadalafil [Cialis] 20 mg PO DAILY PRN 11/13/18 [History] Azithromycin 500 mg PO DAILY #8 tablet 11/15/18 [Rx] Cefdinir [Omnicef] 300 mg PO BID #8 capsule 11/15/18 [Rx] predniSONE [PredniSONE] 40 mg PO DAILY #8 tablet 11/15/18 [Rx] Allergies/Adverse Reactions: Allergy/AdvReac Type Severity Reaction Status Date / Time pain patches AdvReac See Uncoded 06/22/16 12:15 Comments Date of admission: 11/13/18 21:54 Primary care physician: Daniel Tirado - Constitutional Vitals: Temp Pulse Resp BP Pulse Ox 98.2 F 81 18 141/79 92 11/15/18 07:45 11/15/18 07:45 11/15/18 07:45 11/15/18 07:45 11/15/18 07:45 Exam: General: NAD, good eye contact, well appearing Thoracic: faint end expiratory wheezes, decent aeration Cardio: Normal S1 and S2, regular rate and rhythm Abdomen: Soft, nontender Extremities: Warm, well perfused. DP pulses 2+ b/l. Does have b/l 1+ pitting edema to upper shins Skin: Intact. No rashes, bruises, or ulcers Neuro: Awake, fully oriented. Speech fluent - Patient Status Disposition: Home, Self-Care Condition: Fair Functional capacity at discharge: independent ambulation Overall status at discharge: patient is back to baseline - Discharge Instructions Instructions: Prednisone (By mouth), Azithromycin (By mouth), Cefdinir (By mouth) Follow Up With: Daniel Tirado DO [Primary Care Provider] - 11/24/18 10:00 am Forms: ED Satisfaction Letter - Diet and Activity Activity: resume usual activities as tolerated Diet: diabetic diet, low salt diet
--- NOTE | 2018-11-15 12:30 | Electrocardiograph Report ---
[address] [address] Test Date: 2018-11-13 Pat Name: Nik Huerta Department: [id number] Room: 2NE21 Gender: M Skin Care Specialist: : [id number] Requested By: Roxanna Nelson Order Number: [id number] Reading MD: Wu Reyes Measurements Intervals [place] Rate: 99 P: 72 NC: 159 QRS: -52 QRSD: 98 T: 72 QT: 349 QTc: 448 Interpretive Statements Sinus tachycardia with PACs Left axis deviation Electronically Signed On 11-15-2018 12:29:23 EDT by Wu Reyes
== END 2018-11-15 12:21 | disposition home or self-care (01) ==
LOC: 2NENU 18:15 → EMEROOARM 18:15 → SUATTDRO 21:54 → 2NENU 23:05
PROVIDERS: ADMIT Internal Medicine; ATTEND Internal Medicine

== ENCOUNTER 2018-12-31 10:41 | Observation (INO) ==
[2018-12-31 11:24] LABS: Hematocrit 43.2 % (37.5-50.1); Hemoglobin 14.3 g/dL (12.9-16.9); Mean Corpuscular HGB Conc 33.1 g/dL (31.6-35.5); Mean Corpuscular Hemoglobin 29.5 pg (28.0-33.3); Mean Corpuscular Volume 89.3 fL (83.0-100.0); Mean Platelet Volume 11.4 fL (9.4-12.4); Platelet Count 185 K/mcL (140-400); Red Blood Count 4.84 M/mcL (4.19-5.50); Red Cell Distribution Width 14.1 % (11.5-14.5); White Blood Count 14.3 K/mcL (4.3-11.1)
[2018-12-31] MEDS ORDERED: Ipratropium/Albuterol Neb 3 ML IH ONE (11:24)
[2018-12-31] MEDS ORDERED: methylPREDNISolone 125 MG/2 ML VIAL IVP ONE (11:38)
[2018-12-31 11:45] LABS: BUN/Creatinine Ratio 23 (6-26); Blood Urea Nitrogen 24 mg/dL (8-23); Calcium 9.2 mg/dL (8.6-10.3); Carbon Dioxide 24 mEq/L (23-29); Chloride 105 mEq/L (98-107); Glucose 203 mg/dL (70-105); Osmolality,Calculated 294 (280-300); Sodium 137 mEq/L (136-145); Troponin I < 0.03 ng/mL (< 0.04); eGFR For African Americans > 60 (> 60); eGFR For Non-African Americans > 60 (> 60)
[2018-12-31 12:00] LABS: Lymphocytes # 0.7 K/mcL (0.6-4.6); Monocytes # 0.9 K/mcL (0.0-1.3); Neutrophils # 12.7 K/mcL (1.6-8.9)
[2018-12-31 12:01] LABS: Platelet Estimate Normal (Normal)
[2018-12-31 12:27] LABS: VBG HCO3 26 mEq/L (21-27); VBG PCO2 44 mmHg (41-51); VBG PH 7.38 pH Units (7.32-7.42); VBG PO2 78 mmHg (25-50)
[2018-12-31] MEDS: levoFLOXacin 750 MG/150 ML 750 MG/150 ML BAG IVPB SCH (12:32)
[2018-12-31 14:08] LABS: Bilirubin,Urine Small (Negative); Blood,Urine Negative (Negative); Clarity,Urine Clear (Clear); Color,Urine Dark Yellow (Yellow); Glucose,Urine (UA) 250 mg/dL (Normal); Ketones,Urine Negative (Negative); Leukocyte Esterase,Urine Negative (Negative); Nitrite,Urine Negative (Negative); Protein,Urine 30 mg/dL (Neg-Trace); Specific Gravity,Urine 1.027 (1.010-1.025); Urobilinogen,Urine Normal (Normal)
[2018-12-31 14:14] LABS: Bacteria,Urine None Seen per hpf (None-Few); Hyaline Casts,Urine None Seen per lpf (None-Few); Squamous Epithelial Cell,Urine Few per lpf (None-Few); WBC,Urine 0-3 per hpf (0-3)
[2018-12-31] MEDS ORDERED: Naloxone 0.4 MG/ML INJ IVP PRN (15:22)
[2018-12-31] MEDS ORDERED: Ipratropium/Albuterol Neb 3 ML IH PRN (15:26)
[2018-12-31] MEDS ORDERED: Furosemide 40 MG TABLET PO PRN (15:49)
[2018-12-31] MEDS: Gabapentin 400 MG CAPSULE PO SCH (21:15)
[2018-12-31] MEDS: *HR* Heparin 5,000 UNIT/ML VIAL SQ SCH (21:15)
[2018-12-31] MEDS: methylPREDNISolone 125 MG/2 ML VIAL IVP SCH (23:49)
[2019-01-01 02:10] LABS: Basophils % 0.2 %; Hematocrit 42.4 % (37.5-50.1); Hemoglobin 13.9 g/dL (12.9-16.9); Immature Granulocytes % 0.3 % (0-4); Lymphocytes # 0.6 K/mcL (0.6-4.6); Lymphocytes % 5.8 %; Mean Corpuscular HGB Conc 32.8 g/dL (31.6-35.5); Mean Corpuscular Hemoglobin 29.2 pg (28.0-33.3); Mean Corpuscular Volume 89.1 fL (83.0-100.0); Mean Platelet Volume 11.5 fL (9.4-12.4); Monocytes # 0.4 K/mcL (0.0-1.3); Monocytes % 4.1 %; Neutrophils # 9.5 K/mcL (1.6-8.9); Platelet Count 211 K/mcL (140-400); Red Blood Count 4.76 M/mcL (4.19-5.50); Red Cell Distribution Width 13.6 % (11.5-14.5); Segmented Neutrophils % 89.6 %; White Blood Count 10.6 K/mcL (4.3-11.1)
[2019-01-01 02:28] LABS: BUN/Creatinine Ratio 32 (6-26); Blood Urea Nitrogen 27 mg/dL (8-23); Calcium 9.1 mg/dL (8.6-10.3); Carbon Dioxide 25 mEq/L (23-29); Chloride 107 mEq/L (98-107); Glucose 167 mg/dL (70-105); Osmolality,Calculated 297 (280-300); Potassium 4.2 mEq/L (3.5-5.1); Sodium 139 mEq/L (136-145); eGFR For African Americans > 60 (> 60); eGFR For Non-African Americans > 60 (> 60)
[2019-01-01] MEDS: *HR* Heparin 5,000 UNIT/ML VIAL SQ SCH (05:32)
[2019-01-01 07:37] VITALS: BP 153/85
[2019-01-01] MEDS ORDERED: Aspirin Enteric Coated 81 MG Tablet PO SCH (09:00)
[2019-01-01] MEDS: levoFLOXacin 750 MG/150 ML 750 MG/150 ML BAG IVPB SCH (09:26)
[2019-01-01] MEDS: Gabapentin 400 MG CAPSULE PO SCH (09:27)
[2019-01-01] MEDS: methylPREDNISolone 125 MG/2 ML VIAL IVP SCH (09:27)
== END 2019-01-01 11:55 | disposition home or self-care (01) ==
LOC: 3BNU 10:41 → EMEROOARM 10:41 → 3BNU 14:00
PROVIDERS: ADMIT Internal Medicine; ATTEND Internal Medicine

== ENCOUNTER 2019-10-15 13:40 | Observation (INO) ==
[2019-10-15 14:30] LABS: Basophils # 0.1 K/mcL (0.0-0.2); Basophils % 0.4 %; Eosinophils # 0.2 K/mcL (0.0-0.6); Eosinophils % 1.6 %; Hematocrit 44.3 % (37.5-50.1); Hemoglobin 14.6 g/dL (12.9-16.9); Immature Granulocytes % 0.4 % (0-4); Lymphocytes # 1.6 K/mcL (0.6-4.6); Lymphocytes % 11.2 %; Mean Corpuscular Volume 87.9 fL (83.0-100.0); Mean Platelet Volume 11.6 fL (9.4-12.4); Monocytes % 7.4 %; Neutrophils # 11.2 K/mcL (1.6-8.9); Platelet Count 182 K/mcL (140-400); Red Blood Count 5.04 M/mcL (4.19-5.50); Red Cell Distribution Width 13.1 % (11.5-14.5); White Blood Count 14.1 K/mcL (4.3-11.1)
[2019-10-15 14:49] LABS: BUN/Creatinine Ratio 18 (6-26); Blood Urea Nitrogen 16 mg/dL (8-23); Carbon Dioxide 29 mEq/L (23-29); Chloride 103 mEq/L (98-107); Glucose 111 mg/dL (70-105); Osmolality,Calculated 290 (280-300); Potassium 3.6 mEq/L (3.5-5.1); Sodium 139 mEq/L (136-145); eGFR For African Americans > 60 (> 60); eGFR For Non-African Americans > 60 (> 60)
[2019-10-15 14:51] LABS: Troponin I < 0.03 ng/mL (< 0.04)
[2019-10-15] MEDS ORDERED: Isovue-370 500 ML BOTTLE IVP ONE ×2 (15:03→19:45)
[2019-10-15] MEDS ORDERED: methylPREDNISolone 125 MG/2 ML VIAL IVP STA (15:10)
[2019-10-15] MEDS ORDERED: cefTRIAXone 1,000 MG in Water for inj. (sterile) 10 ML IVP STA (15:13)
[2019-10-15] MEDS: Albuterol 2.5 MG/3 ML NEBULIZER IH SCH ×3 (15:57→17:37)
[2019-10-15] MEDS ORDERED: Azithromycin 500 MG in 0.9 % Sodium Chloride 250 ML IVPB STA (17:58)
[2019-10-15] MEDS ORDERED: Ondansetron 4 MG/2 ML VIAL IVP PRN (18:19)
[2019-10-15] MEDS ORDERED: Naloxone 0.4 MG/ML INJ IVP PRN (18:19)
[2019-10-15] MEDS ORDERED: Furosemide 40 MG TABLET PO PRN (18:28)
[2019-10-15] MEDS: Budesonide/Formoterol 160/4.5 1 PUFF INH IH SCH (22:32)
[2019-10-15] MEDS: Ipratropium/Albuterol Neb 3 ML IH SCH (22:32)
[2019-10-16 00:32] LABS: Basophils % 0.2 %; Hematocrit 42.8 % (37.5-50.1); Hemoglobin 14.3 g/dL (12.9-16.9); Immature Granulocytes % 0.3 % (0-4); Lymphocytes # 0.4 K/mcL (0.6-4.6); Lymphocytes % 3.8 %; Mean Corpuscular HGB Conc 33.4 g/dL (31.6-35.5); Mean Corpuscular Hemoglobin 29.7 pg (28.0-33.3); Mean Platelet Volume 11.7 fL (9.4-12.4); Monocytes # 0.1 K/mcL (0.0-1.3); Monocytes % 0.5 %; Neutrophils # 10.6 K/mcL (1.6-8.9); Platelet Count 176 K/mcL (140-400); Red Blood Count 4.81 M/mcL (4.19-5.50); Red Cell Distribution Width 12.9 % (11.5-14.5); Segmented Neutrophils % 95.2 %; White Blood Count 11.1 K/mcL (4.3-11.1)
[2019-10-16] MEDS: MethylPREDNISolone 40 MG/ML VIAL IVP SCH ×2 (00:36→08:47)
[2019-10-16] MEDS: *HR* Heparin 5,000 UNIT/ML VIAL SQ SCH ×2 (00:36→05:27)
[2019-10-16 00:50] LABS: BUN/Creatinine Ratio 19 (6-26); Blood Urea Nitrogen 19 mg/dL (8-23); Calcium 8.8 mg/dL (8.6-10.3); Carbon Dioxide 26 mEq/L (23-29); Chloride 103 mEq/L (98-107); Glucose 250 mg/dL (70-105); Osmolality,Calculated 297 (280-300); Phosphorous 1.8 mg/dL (2.7-4.5); Potassium 3.8 mEq/L (3.5-5.1); Sodium 138 mEq/L (136-145); eGFR For African Americans > 60 (> 60); eGFR For Non-African Americans > 60 (> 60)
[2019-10-16] MEDS: Ipratropium/Albuterol Neb 3 ML IH SCH ×4 (01:30→11:06)
[2019-10-16 04:59] LABS: Adenovirus Not Detected (Not Detect); Bordetella Pertussis Not Detected (Not Detect); Chlamydophila pneumoniae Not Detected (Not Detect); Coronavirus 229E Not Detected (Not Detect); Coronavirus HKU1 Not Detected (Not Detect); Coronavirus NL63 Not Detected (Not Detect); Coronavirus OC43 Not Detected (Not Detect); Human Metapneumovirus Not Detected (Not Detect); Human Rhinovirus/Enterovirus Not Detected (Not Detect); Influenza A Subtype 2009 H1 Not Detected (Not Detect); Influenza B Not Detected (Not Detect); Mycoplasma pneumoniae Not Detected (Not Detect); Parainfluenza Virus 1 Not Detected (Not Detect); Parainfluenza Virus 2 Not Detected (Not Detect); Parainfluenza Virus 3 Not Detected (Not Detect); Parainfluenza Virus 4 Not Detected (Not Detect); Respiratory Syncytial Virus Not Detected (Not Detect)
[2019-10-16] MEDS: Budesonide/Formoterol 160/4.5 1 PUFF INH IH SCH (07:24)
[2019-10-16] MEDS ORDERED: carvediloL 6.25 MG TABLET PO SCH (08:00)
[2019-10-16] MEDS ORDERED: Azithromycin 500 MG in 0.9 % Sodium Chloride 250 ML IVPB SCH (09:00)
[2019-10-16] MEDS ORDERED: cefTRIAXone 1,000 MG in Water for inj. (sterile) 10 ML IVP SCH (09:00)
[2019-10-16] MEDS ORDERED: Aspirin Enteric Coated 81 MG Tablet PO SCH (09:00)
[2019-10-16 10:28] VITALS: BP 129/69
[2019-10-17] MEDS ORDERED: Azithromycin 250 MG TABLET PO SCH (09:00)
[2019-10-17] MEDS ORDERED: predniSONE 20 MG TABLET PO SCH (09:00)
== END 2019-10-16 13:08 | disposition home or self-care (01) ==
LOC: 2ANU 13:40 → EMEROOARM 13:40 → SUATTDRO 19:57 → 2ANU 20:40
PROVIDERS: ADMIT Internal Medicine; ATTEND Family Medicine

== ENCOUNTER 2020-07-12 14:00 | Inpatient (IN) ==
[2020-07-12] MEDS ORDERED: Ipratropium/Albuterol Neb 3 ML IH ONE (14:15)
[2020-07-12] MEDS ORDERED: Furosemide 40 MG/4 ML VIAL IVP ONE (14:17)
[2020-07-12] MEDS ORDERED: Nitroglycerin 0.4 MG TAB.SUBL SL PRN (14:26)
[2020-07-12 14:40] LABS: Basophils % 0.2 %; Immature Granulocytes % 0.2 % (0-4); Red Cell Distribution Width 13.4 % (11.5-14.5)
[2020-07-12 14:42] LABS: Hematocrit 44.1 % (37.5-50.1); Hemoglobin 14.4 g/dL (12.9-16.9); Immature Platelets 9.4 % (1.1-6.1); Lymphocytes # 0.9 K/mcL (0.6-4.6); Lymphocytes % 20.5 %; Mean Corpuscular HGB Conc 32.7 g/dL (31.6-35.5); Mean Corpuscular Hemoglobin 29.4 pg (28.0-33.3); Mean Corpuscular Volume 90.2 fL (83.0-100.0); Mean Platelet Volume 12.2 fL (9.4-12.4); Monocytes # 0.4 K/mcL (0.0-1.3); Monocytes % 9.3 %; Red Blood Count 4.89 M/mcL (4.19-5.50); Segmented Neutrophils % 69.8 %; White Blood Count 4.3 K/mcL (4.3-11.1)
[2020-07-12 14:43] LABS: Platelet Count 92 K/mcL (140-400)
[2020-07-12 14:45] LABS: INR 1.3
[2020-07-12 14:47] LABS: Activated Partial Thrombo Time 30.9 Seconds (26.0-36.0)
[2020-07-12 15:02] LABS: Alanine Aminotransferase 68 Units/L (7-52); Albumin/Globulin Ratio 1.5 (1.1-2.2); Alkaline Phosphatase 68 Units/L (34-104); Aspartate Amino Transferase 47 Units/L (13-39); BUN/Creatinine Ratio 15 (6-26); Bilirubin,Direct 0.1 mg/dL (0.0-0.2); Bilirubin,Indirect 0.4 mg/dL (0.0-1.0); Bilirubin,Total 0.5 mg/dL (0.3-1.0); Blood Urea Nitrogen 17 mg/dL (8-23); Calcium 8.1 mg/dL (8.6-10.3); Carbon Dioxide 30 mEq/L (23-29); Chloride 106 mEq/L (98-107); Globulin 2.7 g/dL (2.4-3.5); Glucose 111 mg/dL (70-105); Osmolality,Calculated 296 (280-300); Potassium 3.5 mEq/L (3.5-5.1); Sodium 142 mEq/L (136-145); Total Protein 6.7 g/dL (6.4-8.9); Troponin I 0.03 ng/mL (< 0.04); eGFR For African Americans > 60 (> 60); eGFR For Non-African Americans > 60 (> 60)
[2020-07-12 15:50] LABS: Adenovirus Not Detected (Not Detect); Coronavirus 229E Not Detected (Not Detect); Coronavirus HKU1 Not Detected (Not Detect); Coronavirus NL63 Not Detected (Not Detect); Coronavirus OC43 Not Detected (Not Detect)
[2020-07-12 15:53] LABS: Bordetella Pertussis Not Detected (Not Detect); Chlamydophila pneumoniae Not Detected (Not Detect); Human Metapneumovirus Not Detected (Not Detect); Human Rhinovirus/Enterovirus Not Detected (Not Detect); Influenza A Subtype 2009 H1 Not Detected (Not Detect); Influenza B Not Detected (Not Detect); Mycoplasma pneumoniae Not Detected (Not Detect); Parainfluenza Virus 1 Not Detected (Not Detect); Parainfluenza Virus 2 Not Detected (Not Detect); Parainfluenza Virus 3 Not Detected (Not Detect); Parainfluenza Virus 4 Not Detected (Not Detect); Respiratory Syncytial Virus Not Detected (Not Detect); SARS-CoV-2 DETECTED (Not Detect)
[2020-07-12] MEDS ORDERED: Naloxone 0.4 MG/ML INJ IVP PRN (16:53)
[2020-07-12] MEDS ORDERED: traZODone 50 MG TABLET PO PRN (16:55)
[2020-07-12] MEDS ORDERED: Furosemide 40 MG TABLET PO PRN (16:55)
[2020-07-12] MEDS ORDERED: Isovue-370 500 ML BOTTLE IVP ONE (17:00)
[2020-07-12] MEDS ORDERED: Dexamethasone 4 MG/ML VIAL IVP STA (17:09)
[2020-07-12 18:01] LABS: ABG Base Excess 1 mEq/L (-2 to 3); ABG HCO3 26 mEq/L (21-27); ABG Oxygen Saturation 96 % (95-98); ABG PCO2 40 mmHg (35-45); ABG PH 7.42 pH Units (7.32-7.45); ABG PO2 77 mmHg (85-104); ABG TCO2 27 mEq/L (20-26)
[2020-07-12] MEDS ORDERED: *HR* Metoprolol 5 MG/5 ML VIAL IVP ONE (18:50)
[2020-07-12] MEDS ORDERED: Remdesivir 200 MG in 0.9 % Sodium Chloride 100 ML IVPB ONE (21:00)
[2020-07-12] MEDS: Gabapentin 400 MG CAPSULE PO SCH (21:32)
[2020-07-12] MEDS: carvediloL 25 MG TABLET PO SCH (21:32)
[2020-07-12] MEDS: Budesonide/Formoterol 160/4.5 1 PUFF INH IH SCH ×2 (21:36→21:38)
[2020-07-13] MEDS: *HR* Enoxaparin 40 MG/0.4 ML SYRINGE SQ SCH (05:37)
[2020-07-13 05:49] LABS: INR 1.2; Prothrombin Time 13.7 Seconds (9.4-12.1)
[2020-07-13 05:54] LABS: Immature Granulocytes % 0.3 % (0-4); Red Cell Distribution Width 13.5 % (11.5-14.5)
[2020-07-13 05:56] LABS: Hematocrit 45.5 % (37.5-50.1); Hemoglobin 14.9 g/dL (12.9-16.9); Immature Platelets 11.8 % (1.1-6.1); Lymphocytes # 0.7 K/mcL (0.6-4.6); Lymphocytes % 22.5 %; Mean Corpuscular HGB Conc 32.7 g/dL (31.6-35.5); Mean Corpuscular Hemoglobin 29.2 pg (28.0-33.3); Mean Platelet Volume 12.1 fL (9.4-12.4); Monocytes # 0.2 K/mcL (0.0-1.3); Monocytes % 4.6 %; Neutrophils # 2.4 K/mcL (1.6-8.9); Red Blood Count 5.11 M/mcL (4.19-5.50); Segmented Neutrophils % 72.6 %; White Blood Count 3.3 K/mcL (4.3-11.1)
[2020-07-13 06:04] LABS: Platelet Count 88 K/mcL (140-400)
[2020-07-13 06:08] LABS: Alanine Aminotransferase 58 Units/L (7-52); Albumin 3.7 g/dL (3.5-5.7); Albumin/Globulin Ratio 1.4 (1.1-2.2); Alkaline Phosphatase 63 Units/L (34-104); Aspartate Amino Transferase 39 Units/L (13-39); BUN/Creatinine Ratio 26 (6-26); Bilirubin,Total 0.5 mg/dL (0.3-1.0); Blood Urea Nitrogen 33 mg/dL (8-23); Calcium 7.9 mg/dL (8.6-10.3); Carbon Dioxide 23 mEq/L (23-29); Chloride 108 mEq/L (98-107); Globulin 2.6 g/dL (2.4-3.5); Glucose 197 mg/dL (70-105); Osmolality,Calculated 303 (280-300); Potassium 3.9 mEq/L (3.5-5.1); Sodium 140 mEq/L (136-145); Total Protein 6.3 g/dL (6.4-8.9); eGFR For African Americans > 60 (> 60); eGFR For Non-African Americans 56 (> 60)
[2020-07-13] MEDS: Budesonide/Formoterol 160/4.5 1 PUFF INH IH SCH ×2 (07:32→20:00)
[2020-07-13] MEDS: Dexamethasone 4 MG/ML VIAL IVP SCH (08:43)
[2020-07-13] MEDS: Aspirin Enteric Coated 81 MG Tablet PO SCH (08:47)
[2020-07-13] MEDS: Gabapentin 400 MG CAPSULE PO SCH ×2 (08:52→19:59)
[2020-07-13] MEDS: carvediloL 25 MG TABLET PO SCH ×2 (08:52→16:53)
[2020-07-13] MEDS ORDERED: (Roflumilast [Daliresp] 500 MCG) PO SCH (09:00)
[2020-07-13] MEDS ORDERED: (Felodipine [Felodipine Er] 5 MG) PO SCH (09:00)
[2020-07-13] MEDS: amLODIPine 5 MG TABLET PO SCH (13:14)
[2020-07-13] MEDS: Remdesivir 100 MG in 0.9 % Sodium Chloride 100 ML IVPB SCH (19:02)
[2020-07-14] MEDS: *HR* Enoxaparin 40 MG/0.4 ML SYRINGE SQ SCH (05:17)
[2020-07-14 06:05] LABS: Alanine Aminotransferase 48 Units/L (7-52); Albumin 3.4 g/dL (3.5-5.7); Albumin/Globulin Ratio 1.4 (1.1-2.2); Alkaline Phosphatase 54 Units/L (34-104); Aspartate Amino Transferase 31 Units/L (13-39); BUN/Creatinine Ratio 38 (6-26); Bilirubin,Total 0.4 mg/dL (0.3-1.0); Blood Urea Nitrogen 39 mg/dL (8-23); Calcium 8.3 mg/dL (8.6-10.3); Carbon Dioxide 25 mEq/L (23-29); Chloride 108 mEq/L (98-107); Globulin 2.4 g/dL (2.4-3.5); Glucose 145 mg/dL (70-105); Osmolality,Calculated 302 (280-300); Potassium 3.9 mEq/L (3.5-5.1); Sodium 140 mEq/L (136-145); Total Protein 5.8 g/dL (6.4-8.9); eGFR For African Americans > 60 (> 60); eGFR For Non-African Americans > 60 (> 60)
[2020-07-14 06:31] LABS: Basophils % 0.2 %; Immature Granulocytes % 0.2 % (0-4); Mean Corpuscular Volume 89.8 fL (83.0-100.0); Red Cell Distribution Width 13.1 % (11.5-14.5)
[2020-07-14 06:33] LABS: Hematocrit 41.3 % (37.5-50.1); Hemoglobin 13.9 g/dL (12.9-16.9); Immature Platelets 14.7 % (1.1-6.1); Lymphocytes # 0.7 K/mcL (0.6-4.6); Lymphocytes % 11.8 %; Mean Corpuscular HGB Conc 33.7 g/dL (31.6-35.5); Mean Corpuscular Hemoglobin 30.2 pg (28.0-33.3); Mean Platelet Volume 13.3 fL (9.4-12.4); Monocytes # 0.5 K/mcL (0.0-1.3); Monocytes % 8.1 %; Neutrophils # 4.7 K/mcL (1.6-8.9); Segmented Neutrophils % 79.7 %; White Blood Count 5.9 K/mcL (4.3-11.1)
[2020-07-14 06:36] LABS: Platelet Count 85 K/mcL (140-400)
[2020-07-14 06:56] LABS: INR 1.2; Prothrombin Time 13.9 Seconds (9.4-12.1)
[2020-07-14] MEDS: carvediloL 25 MG TABLET PO SCH ×2 (07:54→17:45)
[2020-07-14] MEDS: Aspirin Enteric Coated 81 MG Tablet PO SCH (07:54)
[2020-07-14] MEDS: amLODIPine 5 MG TABLET PO SCH (07:54)
[2020-07-14] MEDS: Gabapentin 400 MG CAPSULE PO SCH ×2 (07:54→21:24)
[2020-07-14] MEDS: Dexamethasone 4 MG/ML VIAL IVP SCH (07:54)
[2020-07-14] MEDS: Budesonide/Formoterol 160/4.5 1 PUFF INH IH SCH ×2 (08:12→20:05)
[2020-07-14] MEDS: Remdesivir 100 MG in 0.9 % Sodium Chloride 100 ML IVPB SCH (17:45)
[2020-07-15 06:18] LABS: Hematocrit 40.2 % (37.5-50.1); Hemoglobin 13.4 g/dL (12.9-16.9); Immature Granulocytes % 0.7 % (0-4); Immature Platelets 16.7 % (1.1-6.1); Lymphocytes # 0.9 K/mcL (0.6-4.6); Lymphocytes % 8.4 %; Mean Corpuscular HGB Conc 33.3 g/dL (31.6-35.5); Mean Corpuscular Hemoglobin 29.2 pg (28.0-33.3); Mean Corpuscular Volume 87.6 fL (83.0-100.0); Mean Platelet Volume 13.1 fL (9.4-12.4); Monocytes # 0.8 K/mcL (0.0-1.3); Neutrophils # 8.5 K/mcL (1.6-8.9); Platelet Count 106 K/mcL (140-400); Red Blood Count 4.59 M/mcL (4.19-5.50); Segmented Neutrophils % 82.9 %; White Blood Count 10.2 K/mcL (4.3-11.1)
[2020-07-15 06:22] LABS: INR 1.2; Prothrombin Time 14.1 Seconds (9.4-12.1)
[2020-07-15 06:34] LABS: Alanine Aminotransferase 46 Units/L (7-52); Albumin 3.4 g/dL (3.5-5.7); Albumin/Globulin Ratio 1.5 (1.1-2.2); Alkaline Phosphatase 56 Units/L (34-104); Aspartate Amino Transferase 31 Units/L (13-39); BUN/Creatinine Ratio 35 (6-26); Bilirubin,Total 0.4 mg/dL (0.3-1.0); Blood Urea Nitrogen 33 mg/dL (8-23); Calcium 8.1 mg/dL (8.6-10.3); Carbon Dioxide 27 mEq/L (23-29); Chloride 107 mEq/L (98-107); Globulin 2.3 g/dL (2.4-3.5); Glucose 137 mg/dL (70-105); Osmolality,Calculated 299 (280-300); Potassium 4.2 mEq/L (3.5-5.1); Sodium 140 mEq/L (136-145); Total Protein 5.7 g/dL (6.4-8.9); eGFR For African Americans > 60 (> 60); eGFR For Non-African Americans > 60 (> 60)
[2020-07-15] MEDS: Budesonide/Formoterol 160/4.5 1 PUFF INH IH SCH ×2 (07:44→22:02)
[2020-07-15] MEDS: Dexamethasone 4 MG/ML VIAL IVP SCH (09:41)
[2020-07-15] MEDS: Aspirin Enteric Coated 81 MG Tablet PO SCH (09:42)
[2020-07-15] MEDS: amLODIPine 5 MG TABLET PO SCH (09:42)
[2020-07-15] MEDS: carvediloL 25 MG TABLET PO SCH ×2 (09:42→17:17)
[2020-07-15] MEDS: Gabapentin 400 MG CAPSULE PO SCH ×2 (09:42→22:04)
[2020-07-15] MEDS: *HR* Enoxaparin 40 MG/0.4 ML SYRINGE SQ SCH (09:47)
[2020-07-15] MEDS: Remdesivir 100 MG in 0.9 % Sodium Chloride 100 ML IVPB SCH (17:18)
[2020-07-16 03:51] LABS: Monocytes % 7.6 %
[2020-07-16 03:53] LABS: Basophils % 0.1 %; Hematocrit 40.1 % (37.5-50.1); Hemoglobin 13.3 g/dL (12.9-16.9); INR 1.2; Immature Platelets 17.7 % (1.1-6.1); Mean Corpuscular HGB Conc 33.2 g/dL (31.6-35.5); Mean Corpuscular Hemoglobin 29.4 pg (28.0-33.3); Mean Corpuscular Volume 88.7 fL (83.0-100.0); Mean Platelet Volume 13.6 fL (9.4-12.4); Monocytes # 0.7 K/mcL (0.0-1.3); Platelet Count 115 K/mcL (140-400); Prothrombin Time 13.4 Seconds (9.4-12.1); Red Blood Count 4.52 M/mcL (4.19-5.50); White Blood Count 8.9 K/mcL (4.3-11.1)
[2020-07-16 04:09] LABS: Alanine Aminotransferase 59 Units/L (7-52); Albumin 3.3 g/dL (3.5-5.7); Albumin/Globulin Ratio 1.4 (1.1-2.2); Alkaline Phosphatase 55 Units/L (34-104); Aspartate Amino Transferase 36 Units/L (13-39); BUN/Creatinine Ratio 33 (6-26); Bilirubin,Total 0.4 mg/dL (0.3-1.0); Blood Urea Nitrogen 32 mg/dL (8-23); Calcium 8.1 mg/dL (8.6-10.3); Carbon Dioxide 26 mEq/L (23-29); Chloride 106 mEq/L (98-107); Globulin 2.3 g/dL (2.4-3.5); Glucose 173 mg/dL (70-105); Osmolality,Calculated 299 (280-300); Sodium 139 mEq/L (136-145); Total Protein 5.6 g/dL (6.4-8.9); eGFR For African Americans > 60 (> 60); eGFR For Non-African Americans > 60 (> 60)
[2020-07-16 04:57] LABS: Immature Granulocytes % 0.5 % (0-4)
[2020-07-16 04:59] LABS: Lymphocytes # 0.7 K/mcL (0.6-4.6); Lymphocytes % 7.8 %; Neutrophils # 7.1 K/mcL (1.6-8.9)
[2020-07-16] MEDS: *HR* Enoxaparin 40 MG/0.4 ML SYRINGE SQ SCH (05:34)
[2020-07-16] MEDS: carvediloL 25 MG TABLET PO SCH ×2 (08:16→17:10)
[2020-07-16] MEDS: amLODIPine 5 MG TABLET PO SCH (08:16)
[2020-07-16] MEDS: Gabapentin 400 MG CAPSULE PO SCH (08:16)
[2020-07-16] MEDS: Aspirin Enteric Coated 81 MG Tablet PO SCH (08:16)
[2020-07-16] MEDS: Dexamethasone 4 MG/ML VIAL IVP SCH (08:17)
[2020-07-16] MEDS: Budesonide/Formoterol 160/4.5 1 PUFF INH IH SCH (10:56)
[2020-07-16 11:57] VITALS: BP 140/82
[2020-07-16] MEDS: Remdesivir 100 MG in 0.9 % Sodium Chloride 100 ML IVPB SCH (17:07)
== END 2020-07-16 19:17 | disposition home health service (06) | DRG 177 ==
LOC: EMEROOARM 14:00 → 2NENU 14:00
PROVIDERS: ADMIT Internal Medicine; ATTEND Internal Medicine

== ENCOUNTER 2020-07-19 02:15 | Observation (INO) ==
[2020-07-19] MEDS ORDERED: Ipratropium/Albuterol Neb 3 ML IH ONE (02:47)
[2020-07-19 03:11] LABS: Basophils % 0.3 %; Hematocrit 41.6 % (37.5-50.1); Hemoglobin 13.7 g/dL (12.9-16.9); Immature Granulocytes % 2.5 % (0-4); Lymphocytes # 0.7 K/mcL (0.6-4.6); Lymphocytes % 5.6 %; Mean Corpuscular HGB Conc 32.9 g/dL (31.6-35.5); Mean Corpuscular Hemoglobin 29.2 pg (28.0-33.3); Mean Corpuscular Volume 88.7 fL (83.0-100.0); Mean Platelet Volume 12.5 fL (9.4-12.4); Monocytes % 8.4 %; Neutrophils # 10.1 K/mcL (1.6-8.9); Nucleated Red Blood Cells 0.2 /100 WBC (0); Platelet Count 175 K/mcL (140-400); Red Blood Count 4.69 M/mcL (4.19-5.50); Segmented Neutrophils % 83.2 %; White Blood Count 12.1 K/mcL (4.3-11.1)
[2020-07-19 03:31] LABS: BUN/Creatinine Ratio 35 (6-26); Blood Urea Nitrogen 30 mg/dL (8-23); Calcium 8.3 mg/dL (8.6-10.3); Carbon Dioxide 26 mEq/L (23-29); Chloride 109 mEq/L (98-107); Glucose 148 mg/dL (70-105); Osmolality,Calculated 305 (280-300); Potassium 3.9 mEq/L (3.5-5.1); Sodium 143 mEq/L (136-145); eGFR For African Americans > 60 (> 60); eGFR For Non-African Americans > 60 (> 60)
[2020-07-19 03:32] LABS: Troponin I < 0.03 ng/mL (< 0.04)
[2020-07-19] MEDS ORDERED: Isovue-370 500 ML BOTTLE IVP ONE (03:47)
[2020-07-19] MEDS ORDERED: Albuterol 2.5 MG/3 ML NEBULIZER IH ONE (05:39)
[2020-07-19] MEDS ORDERED: Azithromycin 500 MG in 0.9 % Sodium Chloride 250 ML IVPB ONE (05:42)
[2020-07-19] MEDS ORDERED: Aspirin 81 MG TAB.CHEW ONE (06:04)
[2020-07-19] MEDS ORDERED: Acetaminophen 325 MG TABLET PO PRN (06:12)
[2020-07-19] MEDS ORDERED: Naloxone 0.4 MG/ML INJ IVP PRN (06:12)
[2020-07-19] MEDS ORDERED: Furosemide 40 MG/4 ML VIAL IVP ONE (06:12)
[2020-07-19] MEDS ORDERED: Ondansetron 4 MG/2 ML VIAL IVP PRN (06:12)
[2020-07-19] MEDS ORDERED: Aspirin 81 MG TAB.CHEW PO ONE (06:15)
[2020-07-19] MEDS ORDERED: cefTRIAXone 1,000 MG in Water for inj. (sterile) 10 ML IVP ONE (06:19)
[2020-07-19] MEDS ORDERED: traZODone 50 MG TABLET PO PRN (06:19)
[2020-07-19] MEDS ORDERED: *HR* Enoxaparin 40 MG/0.4 ML SYRINGE SQ ONE (06:26)
[2020-07-19] MEDS: amLODIPine 5 MG TABLET PO SCH (07:44)
[2020-07-19] MEDS: Gabapentin 400 MG CAPSULE PO SCH ×2 (07:44→19:39)
[2020-07-19] MEDS: Dexamethasone Sodium Phos/PF 10 MG/ML VIAL IVP SCH (07:44)
[2020-07-19] MEDS: carvediloL 25 MG TABLET PO SCH ×2 (07:45→17:14)
[2020-07-19] MEDS: Budesonide/Formoterol 160/4.5 1 PUFF INH IH SCH ×2 (07:49→21:42)
[2020-07-19] MEDS ORDERED: Chloraseptic Spray 177 ML BOTTLE MM PRN (21:12)
[2020-07-20 05:43] LABS: Hematocrit 41.1 % (37.5-50.1); Hemoglobin 13.5 g/dL (12.9-16.9); Mean Corpuscular HGB Conc 32.8 g/dL (31.6-35.5); Mean Corpuscular Hemoglobin 29.2 pg (28.0-33.3); Mean Platelet Volume 11.9 fL (9.4-12.4); Platelet Count 180 K/mcL (140-400); Red Blood Count 4.62 M/mcL (4.19-5.50); Red Cell Distribution Width 13.3 % (11.5-14.5); White Blood Count 12.5 K/mcL (4.3-11.1)
[2020-07-20 05:52] LABS: Fibrinogen 216 mg/dL (169-393)
[2020-07-20 05:55] LABS: D-Dimer 3616 ng/mLFEU (0-500)
[2020-07-20] MEDS ORDERED: *HR* Enoxaparin 40 MG/0.4 ML SYRINGE SQ SCH (06:00)
[2020-07-20 06:08] LABS: BUN/Creatinine Ratio 40 (6-26); Blood Urea Nitrogen 38 mg/dL (8-23); Calcium 8.2 mg/dL (8.6-10.3); Carbon Dioxide 27 mEq/L (23-29); Chloride 108 mEq/L (98-107); Glucose 136 mg/dL (70-105); Lactate Dehydrogenase 219 Units/L (140-271); Osmolality,Calculated 305 (280-300); Sodium 142 mEq/L (136-145); eGFR For African Americans > 60 (> 60); eGFR For Non-African Americans > 60 (> 60)
[2020-07-20 06:20] LABS: Ferritin 330 ng/mL (20-250)
[2020-07-20] MEDS ORDERED: Tiotropium 10 INH DOSE IH SCH (07:00)
[2020-07-20] MEDS: Budesonide/Formoterol 160/4.5 1 PUFF INH IH SCH (08:05)
[2020-07-20] MEDS: amLODIPine 5 MG TABLET PO SCH (08:39)
[2020-07-20] MEDS: Gabapentin 400 MG CAPSULE PO SCH (08:39)
[2020-07-20] MEDS: Dexamethasone Sodium Phos/PF 10 MG/ML VIAL IVP SCH (08:39)
[2020-07-20] MEDS: carvediloL 25 MG TABLET PO SCH (08:39)
[2020-07-20] MEDS ORDERED: Aspirin Enteric Coated 81 MG Tablet PO SCH (09:00)
[2020-07-20 11:48] VITALS: BP 131/87
[2020-07-20 12:18] LABS: C-Reactive Protein < 5 mg/L (Less than 10)
== END 2020-07-20 14:35 | disposition home health service (06) ==
LOC: EMEROOARM 02:15 → 2NENU 02:15 → SUATTDRO 05:54 → 2NENU 06:32
PROVIDERS: ADMIT Internal Medicine; ATTEND Family Medicine

== ENCOUNTER 2020-08-07 08:30 | Observation (INO) ==
[2020-08-07] MEDS ORDERED: Aspirin 81 MG TAB.CHEW PO ONE (08:36)
[2020-08-07] MEDS ORDERED: Nitroglycerin 0.4 MG TAB.SUBL SL PRN (08:36)
[2020-08-07 08:59] LABS: Red Cell Distribution Width 13.7 % (11.5-14.5)
[2020-08-07 09:00] LABS: Basophils % 0.4 %; Eosinophils # 0.1 K/mcL (0.0-0.6); Eosinophils % 1.9 %; Hematocrit 39.5 % (37.5-50.1); Hemoglobin 13.1 g/dL (12.9-16.9); Immature Granulocytes % 0.4 % (0-4); Immature Platelets 4.6 % (1.1-6.1); Lymphocytes # 0.9 K/mcL (0.6-4.6); Lymphocytes % 15.3 %; Mean Corpuscular HGB Conc 33.2 g/dL (31.6-35.5); Mean Corpuscular Hemoglobin 29.5 pg (28.0-33.3); Monocytes # 0.5 K/mcL (0.0-1.3); Monocytes % 9.3 %; Neutrophils # 4.1 K/mcL (1.6-8.9); Platelet Count 108 K/mcL (140-400); Red Blood Count 4.44 M/mcL (4.19-5.50); Segmented Neutrophils % 72.7 %; White Blood Count 5.7 K/mcL (4.3-11.1)
[2020-08-07 09:07] LABS: INR 1.2; Prothrombin Time 13.3 Seconds (9.4-12.1)
[2020-08-07 09:09] LABS: Activated Partial Thrombo Time 29.9 Seconds (26.0-36.0)
[2020-08-07 09:19] LABS: BUN/Creatinine Ratio 22 (6-26); Blood Urea Nitrogen 22 mg/dL (8-23); Calcium 8.9 mg/dL (8.6-10.3); Carbon Dioxide 25 mEq/L (23-29); Chloride 110 mEq/L (98-107); Glucose 155 mg/dL (70-105); Osmolality,Calculated 298 (280-300); Potassium 3.8 mEq/L (3.5-5.1); Sodium 141 mEq/L (136-145); Troponin I < 0.03 ng/mL (< 0.04); eGFR For African Americans > 60 (> 60); eGFR For Non-African Americans > 60 (> 60)
[2020-08-07] MEDS ORDERED: Azithromycin 500 MG in 0.9 % Sodium Chloride 250 ML IVPB ONE (09:29)
[2020-08-07] MEDS ORDERED: methylPREDNISolone 125 MG/2 ML VIAL IVP ONE (09:30)
[2020-08-07] MEDS ORDERED: Ipratropium/Albuterol Neb 3 ML IH ONE (09:43)
[2020-08-07] MEDS ORDERED: Ondansetron 4 MG/2 ML VIAL IVP PRN (10:43)
[2020-08-07] MEDS ORDERED: Naloxone 0.4 MG/ML INJ IVP PRN (10:43)
[2020-08-07] MEDS ORDERED: Ipratropium/Albuterol Neb 3 ML IH SCH (11:00)
[2020-08-07] MEDS: Ipratropium/Albuterol Neb 3 ML IH SCH ×3 (11:17→22:08)
[2020-08-07] MEDS: *HR* Heparin 5,000 UNIT/ML VIAL SQ SCH ×2 (16:57→23:57)
[2020-08-07] MEDS: carvediloL 25 MG TABLET PO SCH (17:02)
[2020-08-07] MEDS: Budesonide/Formoterol 160/4.5 1 PUFF INH IH SCH (22:09)
[2020-08-08] MEDS: Ipratropium/Albuterol Neb 3 ML IH SCH ×2 (03:59→11:06)
[2020-08-08 05:35] LABS: Basophils % 0.1 %; Hematocrit 39.7 % (37.5-50.1); Hemoglobin 13.2 g/dL (12.9-16.9); Immature Granulocytes % 0.2 % (0-4); Lymphocytes # 0.9 K/mcL (0.6-4.6); Lymphocytes % 10.5 %; Mean Corpuscular HGB Conc 33.2 g/dL (31.6-35.5); Mean Corpuscular Hemoglobin 29.2 pg (28.0-33.3); Mean Corpuscular Volume 87.8 fL (83.0-100.0); Mean Platelet Volume 11.5 fL (9.4-12.4); Monocytes # 0.7 K/mcL (0.0-1.3); Monocytes % 7.6 %; Platelet Count 134 K/mcL (140-400); Red Blood Count 4.52 M/mcL (4.19-5.50); Red Cell Distribution Width 13.6 % (11.5-14.5); Segmented Neutrophils % 81.6 %
[2020-08-08 05:36] LABS: White Blood Count 8.6 K/mcL (4.3-11.1)
[2020-08-08 05:57] LABS: BUN/Creatinine Ratio 26 (6-26); Blood Urea Nitrogen 23 mg/dL (8-23); Carbon Dioxide 24 mEq/L (23-29); Chloride 108 mEq/L (98-107); Glucose 138 mg/dL (70-105); Osmolality,Calculated 300 (280-300); Potassium 3.9 mEq/L (3.5-5.1); Sodium 142 mEq/L (136-145); eGFR For African Americans > 60 (> 60); eGFR For Non-African Americans > 60 (> 60)
[2020-08-08] MEDS: *HR* Heparin 5,000 UNIT/ML VIAL SQ SCH (05:57)
[2020-08-08] MEDS ORDERED: MethylPREDNISolone 40 MG/ML VIAL IVP SCH (08:00)
[2020-08-08] MEDS: carvediloL 25 MG TABLET PO SCH (08:20)
[2020-08-08] MEDS ORDERED: Azithromycin 500 MG in 0.9 % Sodium Chloride 250 ML IVPB SCH (09:00)
[2020-08-08] MEDS: Budesonide/Formoterol 160/4.5 1 PUFF INH IH SCH (11:06)
[2020-08-08 12:09] VITALS: BP 154/79
== END 2020-08-08 13:48 | disposition home or self-care (01) ==
LOC: 2ANU 08:30 → EMEROOARM 08:30 → SUATTDRO 13:10 → 2ANU 13:45
PROVIDERS: ADMIT Family Medicine; ATTEND Internal Medicine

== ENCOUNTER 2021-04-19 16:08 | Inpatient (IN) ==
[2021-04-19] MEDS ORDERED: methylPREDNISolone 125 MG/2 ML VIAL IVP ONE (17:14)
[2021-04-19] MEDS ORDERED: Ipratropium/Albuterol Neb 3 ML IH ONE (17:14)
[2021-04-19 17:26] LABS: Hematocrit 45.9 % (37.5-50.1); Hemoglobin 15.3 g/dL (12.9-16.9); Mean Corpuscular HGB Conc 33.3 g/dL (31.6-35.5); Platelet Count 192 K/mcL (140-400); Red Cell Distribution Width 13.2 % (11.5-14.5)
[2021-04-19 17:46] LABS: BUN/Creatinine Ratio 24 (6-26); Blood Urea Nitrogen 22 mg/dL (8-23); Calcium 9.2 mg/dL (8.6-10.3); Carbon Dioxide 31 mEq/L (23-29); Chloride 104 mEq/L (98-107); Glucose 112 mg/dL (70-105); Osmolality,Calculated 296 (280-300); Sodium 141 mEq/L (136-145); Troponin I < 0.03 ng/mL (< 0.04); eGFR For African Americans > 60 (> 60); eGFR For Non-African Americans > 60 (> 60)
[2021-04-19 17:50] LABS: Lymphocytes # 1.4 K/mcL (0.6-4.6); Monocytes # 0.8 K/mcL (0.0-1.3); Neutrophils # 24.8 K/mcL (1.6-8.9); Platelet Estimate Normal (Normal)
[2021-04-19 18:58] LABS: Amorphous Sediment,Urine Few per hpf (None-Few); Bacteria,Urine Few per hpf (None-Few); Bilirubin,Urine Negative (Negative); Blood,Urine Negative (Negative); Budding Yeast,Urine Few per hpf (None Seen); Clarity,Urine Turbid (Clear); Color,Urine Light-Yellow (Yellow); Glucose,Urine (UA) Normal (Normal); Ketones,Urine Negative (Negative); Leukocyte Esterase,Urine Negative (Negative); Mucus,Urine Few per lpf (None-Few); Nitrite,Urine Negative (Negative); Protein,Urine Trace mg/dL (Neg-Trace); RBC,Urine 0-3 per hpf (0-3); Specific Gravity,Urine 1.022 (1.010-1.025); Squamous Epithelial Cell,Urine Few per hpf (None-Few); Urobilinogen,Urine Normal (Normal); WBC,Urine 0-3 per hpf (0-3)
[2021-04-19 19:49] LABS: Influenza A PCR Negative (Negative); Influenza B PCR Negative (Negative); Resp. Syncytial Virus PCR Negative (Negative)
[2021-04-19 19:54] LABS: SARS-CoV-2 by PCR (In House) Negative (Negative)
[2021-04-19] MEDS ORDERED: Azithromycin 500 MG in 0.9 % Sodium Chloride 250 ML IVPB ONE (20:08)
[2021-04-19] MEDS ORDERED: cefTRIAXone 1,000 MG in 0.9 % Sodium Chloride Mini Bag 100 ML IVPB ONE (20:18)
[2021-04-19] MEDS ORDERED: cefTRIAXone 1,000 MG in Water for inj. (sterile) 10 ML IVP ONE (20:45)
[2021-04-19] MEDS ORDERED: *HR* Promethazine 25 MG/ML VIAL IM PRN (21:05)
[2021-04-19] MEDS ORDERED: Acetaminophen 325 MG TABLET PO PRN (21:05)
[2021-04-19] MEDS ORDERED: Ondansetron 4 MG/2 ML VIAL IVP PRN (21:05)
[2021-04-19] MEDS ORDERED: Melatonin 3 MG TABLET PO PRN (21:05)
[2021-04-19] MEDS ORDERED: Naloxone 0.4 MG/ML INJ IVP PRN (21:05)
[2021-04-19] MEDS ORDERED: *HR* OxyCODONE Immed Rel 5 MG TABLET PO PRN (21:05)
[2021-04-19] MEDS ORDERED: Ipratropium/Albuterol Neb 3 ML IH PRN (21:09)
[2021-04-20 02:38] LABS: Basophils % 0.2 %; Hematocrit 45.2 % (37.5-50.1); Hemoglobin 14.5 g/dL (12.9-16.9); Immature Granulocytes % 0.7 % (0-4); Mean Corpuscular HGB Conc 32.1 g/dL (31.6-35.5); Mean Corpuscular Volume 90.4 fL (83.0-100.0); Mean Platelet Volume 11.6 fL (9.4-12.4); Monocytes # 0.2 K/mcL (0.0-1.3); Monocytes % 0.6 %; Neutrophils # 23.2 K/mcL (1.6-8.9); Platelet Count 175 K/mcL (140-400); Red Cell Distribution Width 13.2 % (11.5-14.5); Segmented Neutrophils % 94.5 %; White Blood Count 24.5 K/mcL (4.3-11.1)
[2021-04-20 02:45] LABS: INR 1.2
[2021-04-20 02:53] LABS: Basophils # 0.1 K/mcL (0.0-0.2)
[2021-04-20 02:57] LABS: BUN/Creatinine Ratio 21 (6-26); Blood Urea Nitrogen 22 mg/dL (8-23); Calcium 9.1 mg/dL (8.6-10.3); Carbon Dioxide 28 mEq/L (23-29); Chloride 106 mEq/L (98-107); Glucose 199 mg/dL (70-105); Osmolality,Calculated 303 (280-300); Potassium 4.4 mEq/L (3.5-5.1); Sodium 142 mEq/L (136-145); eGFR For African Americans > 60 (> 60); eGFR For Non-African Americans > 60 (> 60)
[2021-04-20 03:09] LABS: Platelet Estimate Normal (Normal)
[2021-04-20] MEDS: MethylPREDNISolone 40 MG/ML VIAL IVP SCH ×2 (05:09→17:32)
[2021-04-20] MEDS: *HR* Enoxaparin 40 MG/0.4 ML SYRINGE SQ SCH (05:45)
[2021-04-20] MEDS ORDERED: Doxycycline 100 MG in 0.9 % Sodium Chloride Mini Bag 100 ML IVPB SCH (06:00)
[2021-04-20] MEDS: cefTRIAXone 1,000 MG in Water for inj. (sterile) 10 ML IVP SCH (10:14)
[2021-04-20] MEDS ORDERED: Albuterol 2.5 MG/3 ML NEBULIZER IH PRN (11:00)
[2021-04-20] MEDS: Ipratropium/Albuterol Neb 3 ML IH SCH ×4 (11:20→23:41)
[2021-04-20] MEDS: carvediloL 25 MG TABLET PO SCH (17:32)
[2021-04-20] MEDS: Gabapentin 400 MG CAPSULE PO SCH (20:02)
[2021-04-20] MEDS: Doxycycline 100 MG CAPSULE PO SCH (20:02)
[2021-04-20] MEDS: Budesonide/Formoterol 160/4.5 1 PUFF INH IH SCH (20:12)
[2021-04-21] MEDS: Ipratropium/Albuterol Neb 3 ML IH SCH ×6 (04:14→23:59)
[2021-04-21] MEDS: *HR* Enoxaparin 40 MG/0.4 ML SYRINGE SQ SCH (05:05)
[2021-04-21] MEDS: MethylPREDNISolone 40 MG/ML VIAL IVP SCH (05:05)
[2021-04-21] MEDS: Budesonide/Formoterol 160/4.5 1 PUFF INH IH SCH ×2 (07:33→19:46)
[2021-04-21] MEDS: carvediloL 25 MG TABLET PO SCH ×2 (08:01→17:39)
[2021-04-21] MEDS: Aspirin Enteric Coated 81 MG Tablet PO SCH (08:01)
[2021-04-21] MEDS: cefTRIAXone 1,000 MG in Water for inj. (sterile) 10 ML IVP SCH (08:01)
[2021-04-21] MEDS: amLODIPine 5 MG TABLET PO SCH (08:01)
[2021-04-21] MEDS: Doxycycline 100 MG CAPSULE PO SCH ×2 (08:01→20:03)
[2021-04-21] MEDS: Gabapentin 400 MG CAPSULE PO SCH ×2 (08:01→20:03)
[2021-04-22 02:34] LABS: Hematocrit 38.8 % (37.5-50.1); Hemoglobin 13.1 g/dL (12.9-16.9); Mean Corpuscular HGB Conc 33.8 g/dL (31.6-35.5); Mean Corpuscular Hemoglobin 30.2 pg (28.0-33.3); Mean Corpuscular Volume 89.4 fL (83.0-100.0); Mean Platelet Volume 11.5 fL (9.4-12.4); Platelet Count 181 K/mcL (140-400); Red Blood Count 4.34 M/mcL (4.19-5.50); White Blood Count 20.4 K/mcL (4.3-11.1)
[2021-04-22 02:57] LABS: BUN/Creatinine Ratio 38 (6-26); Blood Urea Nitrogen 36 mg/dL (8-23); Calcium 8.5 mg/dL (8.6-10.3); Carbon Dioxide 26 mEq/L (23-29); Chloride 107 mEq/L (98-107); Glucose 123 mg/dL (70-105); Magnesium 1.9 mg/dL (1.6-2.6); Osmolality,Calculated 306 (280-300); Phosphorous 3.1 mg/dL (2.7-4.5); Potassium 3.8 mEq/L (3.5-5.1); Sodium 143 mEq/L (136-145); eGFR For African Americans > 60 (> 60); eGFR For Non-African Americans > 60 (> 60)
[2021-04-22] MEDS: Ipratropium/Albuterol Neb 3 ML IH SCH ×3 (04:04→11:22)
[2021-04-22] MEDS: *HR* Enoxaparin 40 MG/0.4 ML SYRINGE SQ SCH (05:51)
[2021-04-22] MEDS: Budesonide/Formoterol 160/4.5 1 PUFF INH IH SCH (07:26)
[2021-04-22] MEDS: carvediloL 25 MG TABLET PO SCH (08:23)
[2021-04-22] MEDS: Gabapentin 400 MG CAPSULE PO SCH (08:23)
[2021-04-22] MEDS: amLODIPine 5 MG TABLET PO SCH (08:24)
[2021-04-22] MEDS: Doxycycline 100 MG CAPSULE PO SCH (08:24)
[2021-04-22] MEDS: Aspirin Enteric Coated 81 MG Tablet PO SCH (08:24)
[2021-04-22] MEDS ORDERED: predniSONE 20 MG TABLET PO SCH (09:00)
[2021-04-22 11:30] VITALS: BP 156/87; PULSE 68; TEMP 97.7; O2SAT 98
== END 2021-04-22 13:42 | disposition home or self-care (01) | DRG 190 ==
LOC: EMEROOARM 16:08 → 3ANU 16:08 → SUATTDRO 20:31 → 3ANU 21:12
PROVIDERS: ADMIT Internal Medicine; ATTEND Internal Medicine

== ENCOUNTER 2021-07-13 16:49 | Observation (INO) ==
[2021-07-13] MEDS ORDERED: methylPREDNISolone 125 MG/2 ML VIAL IVP ONE (17:03)
[2021-07-13] MEDS ORDERED: Isovue-370 500 ML BOTTLE IVP ONE (17:03)
[2021-07-13] MEDS ORDERED: Ipratropium/Albuterol Neb 3 ML IH ONE (17:03)
[2021-07-13 18:00] LABS: Alanine Aminotransferase 19 Units/L (7-52); Albumin 4.4 g/dL (3.5-5.7); Albumin/Globulin Ratio 1.8 (1.1-2.2); Alkaline Phosphatase 76 Units/L (34-104); Aspartate Amino Transferase 13 Units/L (13-39); BUN/Creatinine Ratio 20 (6-26); Bilirubin,Direct 0.2 mg/dL (0.0-0.2); Bilirubin,Indirect 1.2 mg/dL (0.0-1.0); Bilirubin,Total 1.4 mg/dL (0.3-1.0); Blood Urea Nitrogen 20 mg/dL (8-23); Calcium 9.6 mg/dL (8.6-10.3); Carbon Dioxide 28 mEq/L (23-29); Chloride 104 mEq/L (98-107); Globulin 2.4 g/dL (2.4-3.5); Glucose 116 mg/dL (70-105); Osmolality,Calculated 296 (280-300); Sodium 141 mEq/L (136-145); Total Protein 6.8 g/dL (6.4-8.9); Troponin I < 0.03 ng/mL (< 0.04); eGFR For African Americans > 60 (> 60); eGFR For Non-African Americans > 60 (> 60)
[2021-07-13 18:15] LABS: Influenza A PCR Negative (Negative); Influenza B PCR Negative (Negative); Resp. Syncytial Virus PCR Negative (Negative); SARS-CoV-2 by PCR (In House) Negative (Negative)
[2021-07-13 18:40] LABS: Basophils # 0.1 K/mcL (0.0-0.2); Basophils % 0.4 %; Eosinophils # 0.1 K/mcL (0.0-0.6); Eosinophils % 0.8 %; Hematocrit 42.2 % (37.5-50.1); Hemoglobin 14.4 g/dL (12.9-16.9); Immature Granulocytes % 0.4 % (0-4); Lymphocytes # 2.3 K/mcL (0.6-4.6); Lymphocytes % 16.2 %; Mean Corpuscular HGB Conc 34.1 g/dL (31.6-35.5); Mean Corpuscular Hemoglobin 31.4 pg (28.0-33.3); Mean Corpuscular Volume 91.9 fL (83.0-100.0); Mean Platelet Volume 11.8 fL (9.4-12.4); Monocytes # 1.5 K/mcL (0.0-1.3); Monocytes % 10.4 %; Neutrophils # 10.2 K/mcL (1.6-8.9); Platelet Count 175 K/mcL (140-400); Red Blood Count 4.59 M/mcL (4.19-5.50); Red Cell Distribution Width 13.7 % (11.5-14.5); Segmented Neutrophils % 71.8 %; White Blood Count 14.2 K/mcL (4.3-11.1)
[2021-07-13] MEDS ORDERED: Azithromycin 500 MG in 0.9 % Sodium Chloride 250 ML IVPB ONE (18:57)
[2021-07-13] MEDS ORDERED: cefTRIAXone 1,000 MG in Water for inj. (sterile) 10 ML IVP ONE (18:57)
[2021-07-13] MEDS ORDERED: Ondansetron ODT 4 MG TAB.RAPDIS SL PRN (20:22)
[2021-07-13] MEDS ORDERED: Naloxone 0.4 MG/ML INJ IVP PRN (20:22)
[2021-07-13] MEDS ORDERED: Melatonin 3 MG TABLET PO PRN (20:22)
[2021-07-14] MEDS ORDERED: MethylPREDNISolone 40 MG/ML VIAL IVP SCH
[2021-07-14 03:36] LABS: Basophils % 0.2 %; Hemoglobin 14.6 g/dL (12.9-16.9); Immature Granulocytes % 0.4 % (0-4); Lymphocytes # 0.8 K/mcL (0.6-4.6); Lymphocytes % 7.1 %; Mean Corpuscular Hemoglobin 31.3 pg (28.0-33.3); Mean Corpuscular Volume 92.1 fL (83.0-100.0); Mean Platelet Volume 11.6 fL (9.4-12.4); Monocytes # 0.1 K/mcL (0.0-1.3); Monocytes % 1.2 %; Neutrophils # 10.3 K/mcL (1.6-8.9); Platelet Count 191 K/mcL (140-400); Red Blood Count 4.67 M/mcL (4.19-5.50); Red Cell Distribution Width 13.5 % (11.5-14.5); Segmented Neutrophils % 91.1 %; White Blood Count 11.3 K/mcL (4.3-11.1)
[2021-07-14] MEDS: Ipratropium/Albuterol Neb 3 ML IH SCH ×2 (03:39→07:29)
[2021-07-14 03:47] LABS: Alanine Aminotransferase 17 Units/L (7-52); Albumin 4.2 g/dL (3.5-5.7); Albumin/Globulin Ratio 1.7 (1.1-2.2); Alkaline Phosphatase 69 Units/L (34-104); Aspartate Amino Transferase 11 Units/L (13-39); BUN/Creatinine Ratio 26 (6-26); Bilirubin,Direct 0.1 mg/dL (0.0-0.2); Bilirubin,Indirect 0.8 mg/dL (0.0-1.0); Bilirubin,Total 0.9 mg/dL (0.3-1.0); Blood Urea Nitrogen 22 mg/dL (8-23); Calcium 9.2 mg/dL (8.6-10.3); Carbon Dioxide 24 mEq/L (23-29); Chloride 106 mEq/L (98-107); Globulin 2.5 g/dL (2.4-3.5); Glucose 187 mg/dL (70-105); Osmolality,Calculated 294 (280-300); Potassium 4.2 mEq/L (3.5-5.1); Sodium 138 mEq/L (136-145); Total Protein 6.7 g/dL (6.4-8.9); eGFR For African Americans > 60 (> 60); eGFR For Non-African Americans > 60 (> 60)
[2021-07-14] MEDS ORDERED: *HR* Heparin 5,000 UNIT/ML VIAL SQ SCH (06:00)
[2021-07-14 06:41] VITALS: BP 162/83; PULSE 79; TEMP 98
[2021-07-14 08:35] VITALS: O2SAT 98
[2021-07-14] MEDS ORDERED: Gabapentin 300 MG CAPSULE PO SCH (09:00)
[2021-07-14] MEDS ORDERED: predniSONE 20 MG TABLET PO SCH (09:00)
[2021-07-14] MEDS ORDERED: Azithromycin 250 MG TABLET PO SCH (09:00)
[2021-07-14] MEDS ORDERED: *HR* Enoxaparin 40 MG/0.4 ML SYRINGE SQ SCH (09:00)
[2021-07-14] MEDS ORDERED: Aspirin Enteric Coated 81 MG Tablet PO SCH (09:00)
[2021-07-14] MEDS ORDERED: Ipratropium/Albuterol Neb 3 ML IH SCH (12:00)
== END 2021-07-14 10:45 | disposition home or self-care (01) ==
LOC: EMEROOARM 16:49 → 2ANU 16:49 → SUATTDRO 19:43 → 2ANU 20:51
PROVIDERS: ADMIT Internal Medicine; ATTEND Internal Medicine